=== PATIENT | female | born 1970 | race Caucasian/White ===

== ENCOUNTER 2023-01-15 06:46 | Inpatient (IN) | payer OTHER, MEDICAID ==
[~2023-01-15] VITALS: Ht 157.5 cm; Wt 73.0 kg
[2023-01-15 07:00] VITALS: BP_SYST 140
[2023-01-15] MEDS ORDERED: MORPHINE 4 MG INJ. 4 MG/ML VIAL IVP ONE ×2 (07:00→09:15)
[2023-01-15] MEDS ORDERED: ONDANSETRON HCL 4 MG/2 ML VIAL IVP ONE ×2 (07:00→09:15)
--- NOTE | 2023-01-15 07:00 | NUR ---
BROUGHT IN BY [facility], PLACED IN BED #5 AND TRIAGED. REPORT GIVEN TO NURSE
[2023-01-15] MEDS ORDERED: NACL 0.9% 1,000 ML IV ONE ×2 (07:15→11:00)
--- NOTE | 2023-01-15 07:21 | NUR ---
RECEIVED PT FROM VIDA HAMMOND. PT MIGUEL SORTOS FOR C/O ABOMINAL PAIN 07/03, ABDOMEN DISTENDED. PT IS AAOX4. ON R/A . C/O NAUSEA. SKIN INTACT. NO EDEMA. DISTAL PULSES NORMAL, SKIN PALE, WARM. SIDERAILS UP X2
--- NOTE | 2023-01-15 07:23 | NUR ---
DR. FIRAS AT BEDSIDE TO ASSESS PT.
[2023-01-15 07:26] LABS: BASOPHILS # (AUTO) 0.1 K/uL (0.0-0.2); BASOPHILS % (AUTO) 0.8 % (0.0-2.0); EOSINOPHILS # (AUTO) 0.2 K/uL (0.0-0.4); EOSINOPHILS % (AUTO) 2.4 % (0.0-4.0); HEMATOCRIT 33.7 % (36-48); HEMOGLOBIN 11.1 g/dL (12.0-16.0); LYMPHOCYTES # (AUTO) 0.9 K/uL (1.0-5.5); LYMPHOCYTES % (AUTO) 13.4 % (20.5-51.5); MEAN CORPUSCULAR HEMOGLOBIN 30 pg (27-31); MEAN CORPUSCULAR HGB CONC 33 % (32-36); MEAN CORPUSCULAR VOLUME 91 fL (79.0-98.0); MONOCYTES # (AUTO) 0.4 K/uL (0.0-1.0); MONOCYTES % (AUTO) 5.6 % (1.7-9.3); NEUTROPHILS # (AUTO) 5.5 K/uL (1.8-7.7); NEUTROPHILS % (AUTO) 77.8 % (40.0-70.0); PLATELET COUNT (AUTO) 348 K/uL (130-430); RED BLOOD CELL COUNT(AUTO) 3.72 MIL/uL (4.2-6.2); RED CELL DISTRIBUTION WIDTH 16.2 % (9.0-15.0); WHITE BLOOD COUNT (AUTO) 7.1 K/uL (4.8-10.8)
--- NOTE | 2023-01-15 07:30 | NUR ---
MORPHINE 4MG IVP AND ZOFRAN IVP GIVEN. NS 1000ML BOLUS INITIATED. PT STRAIGHT CATH BUT UNABLE TO OBTAIN URINE. PT BLADDER SCANNED AND FOUND TO HAVE 366ML OF URINE RETAINED.
[2023-01-15 07:38] LABS: CALCIUM 9.4 mg/dL (8.4-11.0); CREATININE 1.16 mg/dL (0.55-1.30)
[2023-01-15 07:43] LABS: ALBUMIN 3.3 g/dL (3.4-4.8); TOTAL BILIRUBIN 0.3 mg/dL (0.0-1.0)
[2023-01-15] MEDS ORDERED: ASPI-1393 PO (08:54)
[2023-01-15] MEDS ORDERED: TRAM50TA2 PO (08:54)
[2023-01-15] MEDS ORDERED: DOCU-144 PO (08:54)
[2023-01-15] MEDS ORDERED: DIPH25CA83 PO (08:54)
[2023-01-15] MEDS ORDERED: MULT-1089 PO (08:54)
[2023-01-15] MEDS ORDERED: LIP20 PO (08:54)
[2023-01-15] MEDS ORDERED: EFF37 PO (08:54)
[2023-01-15] MEDS ORDERED: MOM PO (08:54)
[2023-01-15] MEDS ORDERED: VITD400 PO (08:54)
[2023-01-15] MEDS ORDERED: LEVO125C2 PO (08:54)
[2023-01-15] MEDS ORDERED: ANT30 PO (08:54)
[2023-01-15] MEDS ORDERED: ONDA-8 TL (08:54)
[2023-01-15] MEDS ORDERED: PRO40 PO (08:54)
[2023-01-15] MEDS ORDERED: BUSP5TAB3 PO (08:54)
[2023-01-15] MEDS ORDERED: METO25TA6 PO (08:54)
[2023-01-15] MEDS ORDERED: TAMS-11 PO (08:54)
[2023-01-15] MEDS ORDERED: ACET325T53 PO (08:54)
[2023-01-15] MEDS ORDERED: CLON0.1T PO (08:54)
--- NOTE | 2023-01-15 08:55 | NUR ---
Medication reconciliation completed with information provided by PTS FAMILY. Any prior medication reconciliation on file was reviewed and corrected.
--- NOTE | 2023-01-15 10:20 | NUR ---
DR. FRIAS AT BESIDE TO DISCUSS POC.
--- NOTE | 2023-01-15 10:49 | NUR ---
NOTIFIED ED ADMITTING, МАРИЯ, REGARDING DR. FRIAS'S REQEUST FOR ADMISSION/TRANSFER. PER ED AMDITITNG, WE DO NOT NEED TO CALL FOR AUTH FOR ADMISSION. PER FACESHEET: [employer] POS- CHOICE POS II
[2023-01-15] MEDS ORDERED: D5/0.45 NS 1,000 ML IV ONE (11:00)
[2023-01-15] MEDS ORDERED: metroNIDAZOLE 500 mg/NS 100 ML IV ONE (11:00)
--- NOTE | 2023-01-15 11:00 | NUR ---
AAdmit bed requested Patient will be admitted to care of . Admitted to MEDICAL SURGICAL unit. Diagnosis SEVERE STOOL IMPACTION Inpatient (Yes or No) YES Observation (Yes or No) NO Orientation concerns or request close to nursing station (Yes or No) NO Covid Status PENDING On vent or bipap NONE Isolation requirements PENDING Needs a sitter NO From Home (Yes or if No enter name of facility) YES Requires Dialysis (Yes or No) NO Med Rec Completed (Yes of No) YES
--- NOTE | 2023-01-15 11:14 | NUR ---
COVID AND MRSA SWABBBED AND GIVEN TO PHOTOGRAPHIC LABORATORY SUPERVISOR
[2023-01-15 11:22] LABS: BILIRUBIN,URINE NEGATIVE (NEGATIVE); BLOOD, URINE NEGATIVE (NEGATIVE); COLOR,URINE YELLOW (YELLOW); GLUCOSE,URINE NEGATIVE (NEGATIVE); KETONES,URINE NEGATIVE (NEGATIVE); LEUKOCYTE ESTERASE ,URINE NEGATIVE (NEGATIVE); NITRITE, URINE NEGATIVE (NEGATIVE); PROTEIN URINE NEGATIVE (NEGATIVE); UROBILINOGEN,URINE 0.2 (0.2-1.0)
[2023-01-15 11:23] LABS: CLARITY/URINE CLEAR (CLEAR)
--- NOTE | 2023-01-15 11:57 | NUR ---
FLAGYL IVPB AND D5 1/2 NS AT 100ML/HOUR INITIATED.
[2023-01-15] MEDS ORDERED: cloNIDine HCL 0.1 MG TABLET PO PRN (13:15)
[2023-01-15] MEDS ORDERED: DIPHENHYDRAMINE HCL 25 MG CAPSULE PO PRN (13:15)
--- NOTE | 2023-01-15 13:28 | NUR ---
DR. PALM AT BEDSIDE TO ASSESS PT. RECEIVED ORDER FOR WALLACE CATH PLACEMENT.
--- NOTE | 2023-01-15 14:30 | NUR ---
# 16 FR Ackerman catheter with use of sterile technique. Immediate return of 600 cc CLEAR YELLOW urine noted. Bedside drainage bag placed below level of bladder. c Pt tolerated procedure WELL.
--- NOTE | 2023-01-15 15:52 | NUR ---
Patient will be admitted to care of VIDA GONZALEZ. Admitted to MEDICAL SURGICAL unit. Will go to room 101A. Belongings list completed. Complete and up to date summary report printed. SBAR report to be given at bedside with opportunity for questions.
[2023-01-15 16:01] VITALS: BP_SYST 163
--- NOTE | 2023-01-15 16:05 | NUR ---
patient was brought from ER yonny rn gave report bedside. patient is a/o x3-4 . was bedside and gave me meds form home that patient must take. we do not carry that particular medication. meds given to pharmacist. Per ER nurse patient was decomacted of 1.5lbs of stool. straight cath 2liters and dhaliwal was inserted. patient running fluids at 100ml/hr. admission questions answered by patient. patient cleaned due to vomit on gown. patient states is bed bound due to seizure 2 years ago that left her bed bound. patient was in snf x2 years and then d/c one week ago back home to . will continue to monitor patient.
[2023-01-15 16:37] VITALS: BP_SYST 153
[2023-01-15] MEDS: ACETAMINOPHEN 325 MG TABLET PO PRN ×2 (18:23→23:00)
--- NOTE | 2023-01-15 20:00 | NUR ---
Opening note- pt awake, alert and oriented x 2 and forgetful. No c/o abdominal pain. V/s stable afebrile. F/C patent.
[2023-01-15 20:24] VITALS: BP_SYST 100
[2023-01-15] MEDS: METOPROLOL TARTRATE 25 MG TABLET PO SCH (20:49)
[2023-01-15] MEDS: ATORVASTATIN 20 MG TABLET PO SCH (20:49)
[2023-01-15] MEDS: DOCUSATE SODIUM 100 MG CAPSULE PO SCH (20:51)
[2023-01-15] MEDS: Effexor 37.5 MG TAB PO SCH (20:55)
[2023-01-16 00:43] VITALS: BP_SYST 95
--- NOTE | 2023-01-16 01:43 | NUR ---
Consultation Paged Reason for Consultation: severe stool impaction Was consult called: Y Person who was notified: Kylah Consulting Physician: Dr. Stover (Dr. Mcgee is neon light installer) Ordering Physician: Dr. Hedrick
[2023-01-16] MEDS: LEVOTHYROXINE SODIUM SL SCH (06:06)
--- NOTE | 2023-01-16 06:15 | NUR ---
Closing note- pt remains stable. Pt forgetful. Had 1 small amount formed stool. skin dry and intact. H/L on Rt forearm # 22g. F/c with yellow clear urine.
[2023-01-16] MEDS ORDERED: LEVOTHYROXINE SODIUM 0.125 MG TABLET PO SCH (07:00)
--- NOTE | 2023-01-16 07:55 | NUR ---
OPENING NOTES ASLEEP, AROUSES EASILY. ORIENTED. NO SHORTNESS OF BREATH ON ROOM AIR. COMPLAINED OF HEADACHE, SAID THAT TYLENOL HELPS WITH PAIN. IV INTACT. WALLACE CATHETER IN PLACE, YELLOW URINE DRAINING. SAFETY CHECKS DONE. CALL LIGHT WITHIN REACH. WILL MEDICATE.
[2023-01-16 08:00] VITALS: BP_SYST 102
[2023-01-16] MEDS: MILK OF MAGNESIA 30 ML UDC PO SCH (08:45)
[2023-01-16] MEDS: ASPIRIN 81 MG TABLET(ECOTRIN) PO SCH (08:46)
[2023-01-16] MEDS: ACETAMINOPHEN 325 MG TABLET PO PRN (08:46)
[2023-01-16] MEDS: TAMSULOSIN HCL 0.4 MG CAP PO SCH (08:46)
[2023-01-16] MEDS: MULTIVITAMINS TAB 1 TABLET PO SCH (08:47)
[2023-01-16] MEDS: DOCUSATE SODIUM 100 MG CAPSULE PO SCH ×2 (08:47→21:56)
[2023-01-16] MEDS: busPIRone HCL 5 MG TABLET PO SCH (08:47)
[2023-01-16] MEDS: Effexor 37.5 MG TAB PO SCH ×2 (08:48→21:55)
[2023-01-16] MEDS: CHOLECALCIFEROL (VITAMIN D3) 5,000 UNIT TABLET PO SCH (08:48)
[2023-01-16] MEDS: METOPROLOL TARTRATE 25 MG TABLET PO SCH ×2 (08:49→21:00)
[2023-01-16] MEDS ORDERED: LEVOTHYROXINE SODIUM PO SCH (09:00)
--- NOTE | 2023-01-16 09:00 | NUR ---
MED PASS ORAL MEDS GIVEN. PATIENT AND HER EDUCATED ON USE OF MILK OF MAGNESIA AND COLACE. BOTH VERBALIZED UNDERSTANDING.
[2023-01-16] MEDS ORDERED: MINERAL OIL 133 ML ENEMA RC ONE (11:00)
[2023-01-16] MEDS ORDERED: MINERAL OIL 30 ML UDC PO ONE (11:00)
[2023-01-16] MEDS ORDERED: POLYETHYLENE GLYCOL 3350, 17 GM/ POWD.PACK PO ONE (11:00)
--- NOTE | 2023-01-16 11:14 | NUR ---
ROUNDS PATIENT TOOK ORAL MEDS. PREFERRED TO DO THE ENEMA LATER BECAUSE SHE WANTS TO REST.
[2023-01-16 11:23] VITALS: BP_SYST 90
--- NOTE | 2023-01-16 11:40 | NUR ---
ROUNDS GRAPHIC ART TECHNICIAN REPORTS LOW BLOOD PRESSURE. PATIENT DENIES ANY DIZZINESS. NO SIGN OF BLEEDING. LEGS ELEVATED. WILL RE-CHECK.
[2023-01-16 12:27] VITALS: BP_SYST 98
--- NOTE | 2023-01-16 12:29 | NUR ---
BLOOD PRESSURE RECHECKED 98/62mmHg.
--- NOTE | 2023-01-16 14:26 | NUR ---
ROUNDS ONLY A SMEAR OF STOOL EVEN AFTER THE OIL ENEMA. NO URGE TO HAVE A BOWEL MOVEMENT PER PATIENT. SEEN BY DR. PALM. SAFETY CHECKS DONE. CALL LIGHT WITHIN REACH.
[2023-01-16 15:24] VITALS: BP_SYST 100
--- NOTE | 2023-01-16 16:00 | NUR ---
ROUNDS RESTING. NO SIGN OF DISTRESS. SAFETY CHECKS DONE. CALL LIGHT WITHIN REACH.
--- NOTE | 2023-01-16 18:36 | NUR ---
CLOSING NOTES RESTING. NO SHORTNESS OF BREATH ON ROOM AIR. DENIES ANY PAIN. NO BOWEL MOVEMENT. ALL NEEDS MET THROUGHOUT SHIFT. SAFETY CHECKS DONE. CALL LIGHT WITHIN REACH.
--- NOTE | 2023-01-16 19:00 | NUR ---
RECEIVED PT IN BED.AOX2.ON RA.NOT IN RESPIRATORY DISTRESS NOTED.BED ION LOWEST POSITION.BEDSIDE TABLE AND CALL LIGHT ARE WITHIN REACH.BED IN LOWEST POSITION.ALL NEEDS ARE MET AT THIS TIME.
[2023-01-16 20:00] VITALS: BP_SYST 101
--- NOTE | 2023-01-16 21:00 | NUR ---
KEPT PT CLEAN AND DRY.ALL NEEDS ARE MET AT THIS TIME.
[2023-01-16] MEDS: POLYETHYLENE GLYCOL 3350, 17 GM/ POWD.PACK PO SCH (21:55)
[2023-01-16] MEDS: ATORVASTATIN 20 MG TABLET PO SCH (21:56)
[2023-01-17 01:12] VITALS: BP_SYST 123
--- NOTE | 2023-01-17 01:37 | NUR ---
PT IS ASLEEP.PT HAS EVEN AND UNLABORED BREATHING NOTED.
[2023-01-17] MEDS: LEVOTHYROXINE SODIUM SL SCH (06:15)
[2023-01-17 07:02] LABS: BASOPHILS % (AUTO) 0.7 % (0.0-2.0); EOSINOPHILS # (AUTO) 0.4 K/uL (0.0-0.4); EOSINOPHILS % (AUTO) 9.4 % (0.0-4.0); HEMATOCRIT 29.7 % (36-48); HEMOGLOBIN 9.9 g/dL (12.0-16.0); LYMPHOCYTES # (AUTO) 0.7 K/uL (1.0-5.5); LYMPHOCYTES % (AUTO) 16.1 % (20.5-51.5); MEAN CORPUSCULAR HEMOGLOBIN 30 pg (27-31); MEAN CORPUSCULAR HGB CONC 34 % (32-36); MEAN CORPUSCULAR VOLUME 91 fL (79.0-98.0); MONOCYTES # (AUTO) 0.3 K/uL (0.0-1.0); MONOCYTES % (AUTO) 7.3 % (1.7-9.3); NEUTROPHILS # (AUTO) 2.9 K/uL (1.8-7.7); NEUTROPHILS % (AUTO) 66.5 % (40.0-70.0); PLATELET COUNT (AUTO) 275 K/uL (130-430); RED BLOOD CELL COUNT(AUTO) 3.28 MIL/uL (4.2-6.2); RED CELL DISTRIBUTION WIDTH 15.8 % (9.0-15.0); WHITE BLOOD COUNT (AUTO) 4.4 K/uL (4.8-10.8)
[2023-01-17 07:29] LABS: CALCIUM 8.4 mg/dL (8.4-11.0); CREATININE 1.1 mg/dL (0.55-1.30)
[2023-01-17 08:00] VITALS: BP_SYST 146
--- NOTE | 2023-01-17 08:00 | NUR ---
Initial Notes Patient is Aox3. forgetful. No ss of distress noted. Breathing is even and nonlabored, on room air. Vital signs obtained, as documented. IV patent. Ackerman catheter draining yellow urine. draining by gravity. Bed is locked, alarm on, and at lowest position. call light within reach.
--- NOTE | 2023-01-17 09:01 | NUR ---
notes Dr. Mcgee came to see patient at bedside. New orders received.
[2023-01-17] MEDS: MILK OF MAGNESIA 30 ML UDC PO SCH (09:03)
[2023-01-17] MEDS: MINERAL OIL 30 ML UDC PO SCH (09:04)
[2023-01-17] MEDS: POLYETHYLENE GLYCOL 3350, 17 GM/ POWD.PACK PO SCH ×2 (09:04→20:24)
[2023-01-17] MEDS: Effexor 37.5 MG TAB PO SCH ×2 (09:04→21:32)
[2023-01-17] MEDS: ASPIRIN 81 MG TABLET(ECOTRIN) PO SCH (09:04)
[2023-01-17] MEDS: DOCUSATE SODIUM 100 MG CAPSULE PO SCH ×2 (09:04→20:23)
[2023-01-17] MEDS: CHOLECALCIFEROL (VITAMIN D3) 5,000 UNIT TABLET PO SCH (09:05)
[2023-01-17] MEDS: METOPROLOL TARTRATE 25 MG TABLET PO SCH ×2 (09:05→20:23)
[2023-01-17] MEDS: TAMSULOSIN HCL 0.4 MG CAP PO SCH (09:05)
[2023-01-17] MEDS: busPIRone HCL 5 MG TABLET PO SCH (09:05)
[2023-01-17] MEDS: MULTIVITAMINS TAB 1 TABLET PO SCH (09:06)
--- NOTE | 2023-01-17 11:15 | NUR ---
Noted Administered water tap enema. patient tolerated well. Addendum: 01/17/23 at 1714 by Shweta Thomas LVN PATIENT TOLERATED TAP WATER ENEMA WELL. HAS HAD A FEW BOWEL MOVEMENTS, SOFT/ LIQUID STOOL. ABDOMEN IS SOFT AND DISTENDED. PATIENT STATES FEEL A BETTER AFTER ENEMA.
[2023-01-17 12:00] VITALS: BP_SYST 139
--- NOTE | 2023-01-17 12:30 | NUR ---
NOTES PATIENT IS HAVING LUNCH. TOLERATED CLEAR LIQUID WELL. DENIES PAIN AND NAUSEA. NO SS OF DISTRESS NOTED. WALLACE CATH DRAINING BY GRAVITY. ALL SAFETY PRECAUTIONS IN PLACE AND CALL LIGHT WITHIN REACH.
[2023-01-17 16:38] VITALS: BP_SYST 139
--- NOTE | 2023-01-17 17:16 | NUR ---
NOTES PATIENT IS RESTING, EYES CLOSED. APPEARS TO BE ASLEEP. STABLE. NO FACIAL GRIMACE NOTED. SAFETY PRECAUTIONS IN PLACE AND CALL LIGHT WITHIN REACH.
--- NOTE | 2023-01-17 18:49 | NUR ---
CLOSING NOTES PATIENT FINISHED DINNER AND IS NOW RESTING. NO SS OF DISTRESS NOTED. BREATHING IS EVEN AND NONLABORED, ON ROOM AIR. PATIENT DENIES PAIN. NO SOB NOTED. IV PATENT. WALLACE CATHETER DRAINING YELLOW URINE BY GRAVITY. PATIENT IS STABLE. ALL NEEDS MET. BED IS LOCKED, ALARM ON, AND AT LOWEST POSITION. CALL LIGHT WITHIN REACH.
[2023-01-17] MEDS: traMADol HCL HCL 50 MG TABLET (ULTRAM) PO PRN (19:49)
[2023-01-17 20:00] VITALS: BP_SYST 149
--- NOTE | 2023-01-17 20:00 | NUR ---
RECEIVED PT IN BED,AOX2-3, EVEN AND UNLABORED BREATHING, DENIED ANY SOB,CP, STATED SHE HAS ABD PAIN 09/02, F/C DRAINING UNDER GRAVITY , CLEAR URINE, RA, BR, ON CLR LIQ, WILL CONTINUE WITH POC
[2023-01-17] MEDS: ATORVASTATIN 20 MG TABLET PO SCH (20:24)
[2023-01-17] MEDS: MAG-AL HYDROX/SIMETH 30 ML UDC PO PRN (21:36)
[2023-01-18] VITALS: BP_SYST 132
[2023-01-18] MEDS: traMADol HCL HCL 50 MG TABLET (ULTRAM) PO PRN ×2 (04:49→22:13)
[2023-01-18] MEDS: LEVOTHYROXINE SODIUM SL SCH (06:15)
--- NOTE | 2023-01-18 06:22 | NUR ---
PT AOX2-3, EVEN AND UNLABORED BREATHING, DENIED SOB, CP OR ANY PAIN AT THIS TIME, VOIDING AND HAD BM X3 DURING SHIFT, ABD PAIN CONTROLLED WITH TRAMADOL AND WAS EFFECTIVE PER PT, F/C DRAINING YELLOW CLEAR URINE UNDER GRAVITY, BEDREST, TOLERATING CLEAR DIET AND MEDS, SAFETY PREC MAINTAINED, LOW BED, CALL LIGHT WITHIN REACH, WILL BE ENDORSED TO AM RN
--- NOTE | 2023-01-18 08:00 | NUR ---
Note Report received from night RN. Pt sitting up in bed eating her breakfast. No needs noted at this time. Pt stable. Dr Reynolds (GI) at bedside assessing pt and answering questions/concerns at this time. Ackerman catheter intact and draining well. Call light within reach.
[2023-01-18 08:01] VITALS: BP_SYST 132
[2023-01-18] MEDS: MINERAL OIL 30 ML UDC PO SCH (08:52)
[2023-01-18] MEDS: MILK OF MAGNESIA 30 ML UDC PO SCH (08:52)
[2023-01-18] MEDS: POLYETHYLENE GLYCOL 3350, 17 GM/ POWD.PACK PO SCH ×2 (08:52→20:03)
[2023-01-18] MEDS: busPIRone HCL 5 MG TABLET PO SCH (08:56)
[2023-01-18] MEDS: CHOLECALCIFEROL (VITAMIN D3) 5,000 UNIT TABLET PO SCH (08:56)
[2023-01-18] MEDS: TAMSULOSIN HCL 0.4 MG CAP PO SCH (08:56)
[2023-01-18] MEDS: MULTIVITAMINS TAB 1 TABLET PO SCH (08:56)
[2023-01-18] MEDS: ASPIRIN 81 MG TABLET(ECOTRIN) PO SCH (08:56)
[2023-01-18] MEDS: DOCUSATE SODIUM 100 MG CAPSULE PO SCH ×2 (08:56→20:02)
[2023-01-18] MEDS: Effexor 37.5 MG TAB PO SCH ×2 (08:57→22:13)
[2023-01-18] MEDS: METOPROLOL TARTRATE 25 MG TABLET PO SCH ×2 (08:57→20:03)
[2023-01-18] MEDS: D5/0.45 NS 1,000 ML IV SCH ×2 (11:10→17:28)
[2023-01-18 11:24] VITALS: BP_SYST 149
--- NOTE | 2023-01-18 12:15 | NUR ---
Note Pt resting in bed - HIDA scan ordered and to be done at this time. Pt will go down to dept via bed. Dr Lvein was at bedside 1020am - assessment done and questions/concerns were answered at this time.
[2023-01-18 15:20] VITALS: BP_SYST 142
--- NOTE | 2023-01-18 17:40 | NUR ---
Note - HIDA Pt went down for HIDA scan at 1650 via [employer], pt returned to room at 1720. Pt refused HIDA scan. Pt returned to room back to bed. Pt refused all food/nutrition at this time. Pt wants to just sleep/rest at this time with lights in room off (pt wants to rest in the dark). Call light within reach.
--- NOTE | 2023-01-18 18:10 | NUR ---
END OF SHIFT. Pt asleep in bed, no needs noted. Ackerman catheter intact and draining. VSS. IV in right forearm intact and patent infusing IVF's. Pt's bed in low position and bed alarm on. side rails raised. Call light within reach.
[2023-01-18 19:41] VITALS: BP_SYST 137
--- NOTE | 2023-01-18 20:00 | NUR ---
Opening note- pt awake and oriented x2-3. No s/sx of distress. D51/2NS at 75 ml/hr. Rt arm iv- infiltrated. Changed to lt arm # 22.
[2023-01-18] MEDS: ATORVASTATIN 20 MG TABLET PO SCH (20:02)
[2023-01-18] MEDS: ONDANSETRON HCL 4 MG/2 ML VIAL IVP PRN (22:13)
[2023-01-19 00:08] VITALS: BP_SYST 139
--- NOTE | 2023-01-19 06:06 | NUR ---
Closing note- pt c/o nausea and abdominal pain last night. Given Zofran 4 mg ivp and Tramadol 1 tab po. Pt had 1 x bm-small and hard. Given Miralax 1 pack last night. Pt able to turn side to side. IVF D51/2NS at 75 ml/hr.
[2023-01-19] MEDS: LEVOTHYROXINE SODIUM SL SCH (06:17)
[2023-01-19 07:28] LABS: BASOPHILS % (AUTO) 0.8 % (0.0-2.0); EOSINOPHILS # (AUTO) 0.3 K/uL (0.0-0.4); EOSINOPHILS % (AUTO) 6.6 % (0.0-4.0); HEMATOCRIT 29.4 % (36-48); HEMOGLOBIN 9.8 g/dL (12.0-16.0); LYMPHOCYTES # (AUTO) 0.9 K/uL (1.0-5.5); LYMPHOCYTES % (AUTO) 18.3 % (20.5-51.5); MEAN CORPUSCULAR HEMOGLOBIN 30 pg (27-31); MEAN CORPUSCULAR HGB CONC 33 % (32-36); MEAN CORPUSCULAR VOLUME 91 fL (79.0-98.0); MONOCYTES # (AUTO) 0.5 K/uL (0.0-1.0); MONOCYTES % (AUTO) 10.1 % (1.7-9.3); NEUTROPHILS # (AUTO) 3.2 K/uL (1.8-7.7); NEUTROPHILS % (AUTO) 64.2 % (40.0-70.0); PLATELET COUNT (AUTO) 278 K/uL (130-430); RED BLOOD CELL COUNT(AUTO) 3.25 MIL/uL (4.2-6.2); RED CELL DISTRIBUTION WIDTH 15.5 % (9.0-15.0)
[2023-01-19 07:30] VITALS: BP_SYST 120
--- NOTE | 2023-01-19 07:30 | NUR ---
OPENING NOTE Patient resting in bed. A/O x 3 with some bouts of confusion, Kuwaiti speaking. Patient Breathing even and unlabored on RA saturations at 100%. NO pain, no distress, no SOB. Patient stated no N/V during the night and currently feels ok to eat breakfast. GI MD is at bedside discussing plans, MD will place more orders for laxatives. Patient on Clear liquid Diet and seems to be tolerating it thus far. Patient has IV to LFA 22G, patent on infusion pump. Bed is locked in lowest position. Call light within reach, all needs met, will continue to monitor.
[2023-01-19] MEDS ORDERED: GOLYTELY / COLYTE SOLUTION 4 LITERS PO ONE (08:00)
[2023-01-19 08:08] LABS: ALBUMIN 2.4 g/dL (3.4-4.8); CALCIUM 8.4 mg/dL (8.4-11.0); CREATININE 1.06 mg/dL (0.55-1.30); TOTAL BILIRUBIN 0.5 mg/dL (0.0-1.0)
[2023-01-19] MEDS: Effexor 37.5 MG TAB PO SCH ×2 (09:18→21:00)
[2023-01-19] MEDS: MINERAL OIL 30 ML UDC PO SCH (09:18)
[2023-01-19] MEDS: POLYETHYLENE GLYCOL 3350, 17 GM/ POWD.PACK PO SCH ×2 (09:18→21:42)
[2023-01-19] MEDS: MILK OF MAGNESIA 30 ML UDC PO SCH (09:18)
[2023-01-19] MEDS: TAMSULOSIN HCL 0.4 MG CAP PO SCH (09:19)
[2023-01-19] MEDS: MULTIVITAMINS TAB 1 TABLET PO SCH (09:19)
[2023-01-19] MEDS: CHOLECALCIFEROL (VITAMIN D3) 5,000 UNIT TABLET PO SCH (09:19)
[2023-01-19] MEDS: DOCUSATE SODIUM 100 MG CAPSULE PO SCH ×2 (09:19→21:40)
[2023-01-19] MEDS: METOPROLOL TARTRATE 25 MG TABLET PO SCH ×2 (09:19→21:43)
[2023-01-19] MEDS: busPIRone HCL 5 MG TABLET PO SCH (09:19)
[2023-01-19] MEDS: ASPIRIN 81 MG TABLET(ECOTRIN) PO SCH (09:19)
[2023-01-19 11:21] VITALS: BP_SYST 110
--- NOTE | 2023-01-19 12:30 | NUR ---
ROUNDS: Patient resting in bed. Patient Breathing even and unlabored on RA saturations at 100%. NO pain, no distress, no SOB. Bed is locked in lowest position. Call light within reach, all needs met, will continue to monitor.
[2023-01-19] MEDS: D5/0.45 NS 1,000 ML IV SCH (12:43)
[2023-01-19 15:35] VITALS: BP_SYST 105
--- NOTE | 2023-01-19 15:49 | NUR ---
MD LEAL Placed a call to MD Sloan regarding patients AST and ALT levels. MD Holly was consulting with patient and wanted me to communicate the labs with patient. Awaiting a call back from MD Sloan
--- NOTE | 2023-01-19 16:10 | NUR ---
ROUNDS: Patient resting in bed. Patient Breathing even and unlabored on RA. NO pain, no distress, no SOB. Bed is locked in lowest position. Call light within reach, all needs met, will continue to monitor.
--- NOTE | 2023-01-19 16:28 | NUR ---
CONSULTATION PAGED/CALLED Reason for Consultation: [] GALLSTONES Person Who was Notified: [] DR Hao MORGAN Consulting Physician: [] DR Hao MORGAN Lining Stamper Specialty: [] GEB SURGEON Ordering Physician: [] DR MONAE
--- NOTE | 2023-01-19 16:40 | NUR ---
MD NAIR Spoke with MD Nair regarding patients status. He stated he will see her in the morning for follow up.
[2023-01-19] MEDS: PIPERACILLIN/TAZO 3.375/DEX-IS 50 ML IV SCH (17:30)
--- NOTE | 2023-01-19 18:35 | NUR ---
CLOSING NOTE Patient resting in bed. Patient Breathing even and unlabored on RA saturations at 100%. NO pain, no distress, no SOB. Patient on Clear liquid Diet and will have MRI MRCP tomorrow, Checklist in chart. Patient has IV to LFA 22G, patent on infusion pump. Bed is locked in lowest position. Call light within reach, all needs met, will endorse to nightshift nurse.
[2023-01-19 20:00] VITALS: BP_SYST 114
[2023-01-19] MEDS: ATORVASTATIN 20 MG TABLET PO SCH (21:44)
[2023-01-20 00:29] VITALS: BP_SYST 117
[2023-01-20] MEDS: LEVOTHYROXINE SODIUM SL SCH (06:29)
[2023-01-20] MEDS: PIPERACILLIN/TAZO 3.375/DEX-IS 50 ML IV SCH ×4 (06:31→17:21)
[2023-01-20 06:53] LABS: BASOPHILS % (AUTO) 0.7 % (0.0-2.0); EOSINOPHILS # (AUTO) 0.3 K/uL (0.0-0.4); EOSINOPHILS % (AUTO) 8.3 % (0.0-4.0); HEMATOCRIT 28.6 % (36-48); HEMOGLOBIN 9.6 g/dL (12.0-16.0); LYMPHOCYTES # (AUTO) 0.8 K/uL (1.0-5.5); LYMPHOCYTES % (AUTO) 21.5 % (20.5-51.5); MEAN CORPUSCULAR HEMOGLOBIN 30 pg (27-31); MEAN CORPUSCULAR HGB CONC 34 % (32-36); MEAN CORPUSCULAR VOLUME 91 fL (79.0-98.0); MONOCYTES # (AUTO) 0.5 K/uL (0.0-1.0); MONOCYTES % (AUTO) 11.9 % (1.7-9.3); NEUTROPHILS # (AUTO) 2.2 K/uL (1.8-7.7); NEUTROPHILS % (AUTO) 57.6 % (40.0-70.0); PLATELET COUNT (AUTO) 278 K/uL (130-430); RED BLOOD CELL COUNT(AUTO) 3.16 MIL/uL (4.2-6.2); RED CELL DISTRIBUTION WIDTH 15.8 % (9.0-15.0); WHITE BLOOD COUNT (AUTO) 3.9 K/uL (4.8-10.8)
[2023-01-20 07:28] LABS: INR 1.1 (0.8-1.2); PROTHROMBIN TIME 11.1 SECS (9.5-12.5)
[2023-01-20 07:31] LABS: ALBUMIN 2.3 g/dL (3.4-4.8); CALCIUM 8.3 mg/dL (8.4-11.0); CREATININE 1.01 mg/dL (0.55-1.30); TOTAL BILIRUBIN 0.4 mg/dL (0.0-1.0)
--- NOTE | 2023-01-20 07:40 | NUR ---
OPENING NOTE Received report from night monitor RN. Upon entering room, patient is laying in bed calmly at this time. She is alert and oriented x4. She denies pain or discomfort at this time. IV site intact. Call light within reach. Safety precautions observed.
--- NOTE | 2023-01-20 07:50 | NUR ---
Patient is alert, oriented, no acute respiratory distress, she continues to have abdominal distention, no request for pain medication, no nausea or vomiting. IV fluid continues with D5.45NS at 75 ml/hr, vitals are stable. Patient was checked frequently.
--- NOTE | 2023-01-20 09:30 | NUR ---
PATIENT RETURNED FROM MRI According to compounding technician. Only 2 images were taken. In MRI, patient asked for the procedure to stop. The tech then ceased the procedure and brought patient brought back to room. Upon arriving back to room, patient reported nausea. IV zofran given at this time per complaint.
[2023-01-20] MEDS: ONDANSETRON HCL 4 MG/2 ML VIAL IVP PRN (09:54)
--- NOTE | 2023-01-20 10:15 | NUR ---
GI ROUNDS Dr. Gonzalez at bedside. He offered to manually disimpact patient. Patient refused at this time.
--- NOTE | 2023-01-20 10:53 | NUR ---
PATIENT REFUSING MORNING MEDS Patient offered morning medications multiple times after arriving from procedure. Patient continues to refuse despite education given. Patient states, "not right now."
[2023-01-20 11:21] VITALS: BP_SYST 140
[2023-01-20] MEDS: DOCUSATE SODIUM 100 MG CAPSULE PO SCH ×2 (13:10→20:59)
[2023-01-20] MEDS: CHOLECALCIFEROL (VITAMIN D3) 5,000 UNIT TABLET PO SCH (13:10)
[2023-01-20] MEDS: MULTIVITAMINS TAB 1 TABLET PO SCH (13:10)
[2023-01-20] MEDS: METOPROLOL TARTRATE 25 MG TABLET PO SCH ×2 (13:11→20:59)
[2023-01-20] MEDS: TAMSULOSIN HCL 0.4 MG CAP PO SCH (13:11)
[2023-01-20] MEDS: busPIRone HCL 5 MG TABLET PO SCH (13:12)
[2023-01-20] MEDS: MILK OF MAGNESIA 30 ML UDC PO SCH (13:12)
[2023-01-20] MEDS: ASPIRIN 81 MG TABLET(ECOTRIN) PO SCH (13:12)
[2023-01-20] MEDS: POLYETHYLENE GLYCOL 3350, 17 GM/ POWD.PACK PO SCH ×2 (13:13→20:58)
[2023-01-20] MEDS: MINERAL OIL 30 ML UDC PO SCH (13:13)
[2023-01-20] MEDS: Effexor 37.5 MG TAB PO SCH ×2 (13:17→21:03)
--- NOTE | 2023-01-20 14:08 | NUR ---
Dietitian Recommendations * When medically appropriate, advance to full liquid diet * Encourage good po intake GS, MPH, RD Please refer to RD Assessment for further details. Thanks! Addendum: 01/20/23 at [address] Amended: Links added.
[2023-01-20 15:37] VITALS: BP_SYST 106
--- NOTE | 2023-01-20 16:08 | NUR ---
PHYSICAL THERAPY CO-SIGN The Physical Therapy Progress Notes documented by Blood Splatter Analyst have been reviewed. Reviewed/Co-Signed by: Art Cao Documentation Done by:DEVON GARCIA Addendum: 01/20/23 at 1608 by Art Cao PT Amended: Links added.
[2023-01-20] MEDS: D5/0.45 NS 1,000 ML IV SCH ×2 (17:24)
[2023-01-20] MEDS: MAG-AL HYDROX/SIMETH 30 ML UDC PO PRN (20:58)
[2023-01-20] MEDS: ATORVASTATIN 20 MG TABLET PO SCH (20:59)
[2023-01-21 00:41] VITALS: BP_SYST 110
[2023-01-21] MEDS: PIPERACILLIN/TAZO 3.375/DEX-IS 50 ML IV SCH ×4 (00:41→19:56)
[2023-01-21 04:00] VITALS: BP_SYST 112
[2023-01-21] MEDS: D5/0.45 NS 1,000 ML IV SCH ×2 (05:03→15:09)
[2023-01-21] MEDS: LEVOTHYROXINE SODIUM SL SCH (06:18)
[2023-01-21] MEDS: METOPROLOL TARTRATE 25 MG TABLET PO SCH ×2 (09:00→21:43)
[2023-01-21] MEDS: DOCUSATE SODIUM 100 MG CAPSULE PO SCH ×2 (09:00→21:42)
[2023-01-21] MEDS: Effexor 37.5 MG TAB PO SCH ×2 (09:00→21:43)
[2023-01-21] MEDS: POLYETHYLENE GLYCOL 3350, 17 GM/ POWD.PACK PO SCH ×2 (09:00→21:44)
--- NOTE | 2023-01-21 10:55 | NUR ---
LATE ENTRY PT STABLE NOT IN ACUTE DISTRESS. NPO FOR MRI MRCP. PT TAKEN FOR MRI BY TECH IN STABLE CONDITION
--- NOTE | 2023-01-21 11:30 | NUR ---
LATE ENTRY CARE ENDORSED TO VIDA ASCENCIO
[2023-01-21 11:40] VITALS: BP_SYST 137
[2023-01-21] MEDS ORDERED: MINERAL OIL 30 ML UDC PO ONE (13:15)
[2023-01-21] MEDS: ASPIRIN 81 MG TABLET(ECOTRIN) PO SCH (14:50)
[2023-01-21] MEDS: MILK OF MAGNESIA 30 ML UDC PO SCH (14:50)
[2023-01-21] MEDS: MULTIVITAMINS TAB 1 TABLET PO SCH (14:51)
[2023-01-21] MEDS: TAMSULOSIN HCL 0.4 MG CAP PO SCH (14:51)
[2023-01-21] MEDS: CHOLECALCIFEROL (VITAMIN D3) 5,000 UNIT TABLET PO SCH (14:51)
[2023-01-21] MEDS: busPIRone HCL 5 MG TABLET PO SCH (14:51)
[2023-01-21 15:20] VITALS: BP_SYST 121
--- NOTE | 2023-01-21 15:34 | NUR ---
PHYSICAL THERAPY CO-SIGN The Physical Therapy Progress Notes documented by Cut And Cover Line Worker have been reviewed. Reviewed/Co-Signed by: Art Cao Documentation Done by:DEVON GARCIA Addendum: 01/21/23 at 1535 by Art Cao PT Amended: Links added.
[2023-01-21] MEDS ORDERED: *PPN PER PHARMACY XX PRN (18:15)
[2023-01-21 19:00] VITALS: BP_SYST 145
[2023-01-21] MEDS: MINERAL OIL 30 ML UDC PO SCH (19:57)
[2023-01-21 20:00] VITALS: BP_SYST 145
[2023-01-21] MEDS: ATORVASTATIN 20 MG TABLET PO SCH (21:43)
[2023-01-22] MEDS: MINERAL OIL 30 ML UDC PO SCH ×4 (00:05→18:04)
[2023-01-22] MEDS: PIPERACILLIN/TAZO 3.375/DEX-IS 50 ML IV SCH ×4 (00:05→18:04)
[2023-01-22 00:52] VITALS: BP_SYST 139
[2023-01-22] MEDS: LEVOTHYROXINE SODIUM SL SCH (05:43)
[2023-01-22 07:15] LABS: ALBUMIN 2.4 g/dL (3.4-4.8); CALCIUM 8.5 mg/dL (8.4-11.0); CREATININE 1.19 mg/dL (0.55-1.30); PHOSPHORUS 2.9 mg/dL (2.7-4.5); TOTAL BILIRUBIN 0.4 mg/dL (0.0-1.0)
[2023-01-22 08:00] VITALS: BP_SYST 130
[2023-01-22] MEDS: D5/0.45 NS 1,000 ML IV SCH ×2 (08:05→21:25)
--- NOTE | 2023-01-22 08:30 | NUR ---
PPN Recommendation Subjective Information 01/22/23: PPN per pharmacy received 01/21/[id number] saw pt for full assessment on 01/20. RD provided called pharmacy and they said they would read her note. RD reviewed current EMR: diet Hx, MD/RN notes, pertinent labs, meds, procedures, care trends, and care activity. Brief RD note d/t high workload/census. Estimated Energy Expenditure (kcals/day) 2895-5399 kcal (25-30 kcal/kg ABW d/t adult maintenance) Estimated Protein Required (g/day) 45-67g (0.8-1.2g/kg ABW d/t adult maintenance) Estimated Fluid Required (l/day) 1.4-1.6L (1mL/kcal maintenance) Dietitian Recommendations * Initiate PPN if medically appropriate: -- D20 AA 8.5% @ 80mL/hr (goal rate) + 20%ILE @ 10mL/hr via peripheral line Provides: 2160mL total volume, 1459 kcals, 82g AA; GIR 1.8 Meets: 100% lower est kcals, 122% higher est PRO, 100% lower est fluids High Risk F/U: 2-3 days GS, MPH, KAYLI Addendum: 01/22/23 at [address] NEW Subjective Pt had been severely impacted w/ no improvements, which is why the PPN was ordered. However, at LOS meeting today, it became clear that she had a very large BM and per EMR review she has had 4 BMs today. PPN is no longer needed for this pt. She could benefit from a high fiber diet, once diet is advanced. NEW Dietitian Recommendations: * Advance to regular, high fiber diet when medically appropriate * Encourage adequate fluid intake * Consider bowel regimen for when pt leaves home CHIARA, MPH, RD
[2023-01-22] MEDS: busPIRone HCL 5 MG TABLET PO SCH (09:12)
[2023-01-22] MEDS: CHOLECALCIFEROL (VITAMIN D3) 5,000 UNIT TABLET PO SCH (09:12)
[2023-01-22] MEDS: Effexor 37.5 MG TAB PO SCH ×2 (09:12→21:00)
[2023-01-22] MEDS: TAMSULOSIN HCL 0.4 MG CAP PO SCH (09:12)
[2023-01-22] MEDS: METOPROLOL TARTRATE 25 MG TABLET PO SCH ×2 (09:12→22:19)
[2023-01-22] MEDS: ASPIRIN 81 MG TABLET(ECOTRIN) PO SCH (09:12)
[2023-01-22] MEDS: DOCUSATE SODIUM 100 MG CAPSULE PO SCH ×2 (09:13→22:19)
[2023-01-22] MEDS: MILK OF MAGNESIA 30 ML UDC PO SCH (09:13)
[2023-01-22] MEDS: MULTIVITAMINS TAB 1 TABLET PO SCH (09:13)
[2023-01-22] MEDS: POLYETHYLENE GLYCOL 3350, 17 GM/ POWD.PACK PO SCH ×2 (09:18→22:19)
[2023-01-22 12:00] VITALS: BP_SYST 138
--- NOTE | 2023-01-22 13:00 | NUR ---
PATIENT REFUSED PT TREATMENT TODAY. MAX ENCOURAGEMENT GIVEN FOR PATIENT TO PARTICIPATE HOWEVER PATIENT STATES SHE FEELS TOO WEAK.
--- NOTE | 2023-01-22 14:13 | NUR ---
PT HAD 2 EXTRA EXTRA VERY LARGE BM'S. ABD SOFT BUT DISTENDED. NO C/O PAIN. FALL PRECAUTIONS IN PLACE, CALL YOUNG IN REACH. GAVE DR MORGAN OFFICE NUMBER PER MD REQUEST. MIDLINE NURSE NOTIFIED OF MIDLINE PLACEMENT ORDER.
--- NOTE | 2023-01-22 14:38 | NUR ---
CARE ENDORSED TO ONCOMING RN
--- NOTE | 2023-01-22 14:40 | NUR ---
OPENING NOTE; RECEIVED SBAR FROM PREVIOUS RN. PT RESTING IN BED. OBTAINED CONSENT FOR MIDLINE PLACEMENT. BED IS LOCKED AND AT LOW POSITION. IVF RUNNING ORDERED. IV SITE REMAIN INTACT AND PATENT. ENCOURAGED TO USE CALL LIGHT FOR ASSISTANCE. DENIES ANY PAIN OR DISCOMFORT. WILL CONT TO MONITOR.
[2023-01-22 15:29] VITALS: BP_SYST 130
--- NOTE | 2023-01-22 18:05 | NUR ---
PT REFUSED MINERAL OIL IINITALLY, BUT PT TOOK MINERAL OIL WITH APPLE JUICE
--- NOTE | 2023-01-22 19:00 | NUR ---
PICC LINE NURSE AT BEDSIDE
--- NOTE | 2023-01-22 19:29 | NUR ---
CLOSING NOTE; PT RESTING IN BED. BED IS LOCKED AND AT LOW POSITION. IVF RUNNING ORDERED. IV SITE REMAIN INTACT AND PATENT. ENCOURAGED TO USE CALL LIGHT FOR ASSISTANCE. DENIES ANY PAIN OR DISCOMFORT. WILL ENDORSE CARE TO ELECTRICAL LINESWORKER RN.
[2023-01-22 20:00] VITALS: BP_SYST 128
[2023-01-22] MEDS ORDERED: TPN PERIPHERAL 0.0001 ML, SODIUM ACETATE 40 MEQ, POTASSIUM CHLORIDE 20 MEQ, K PHOS 9 MM... IV SCH ×9 (21:00)
[2023-01-22] MEDS: ATORVASTATIN 20 MG TABLET PO SCH (22:17)
[2023-01-23] MEDS: MINERAL OIL 30 ML UDC PO SCH ×4 (05:52→17:54)
[2023-01-23] MEDS: PIPERACILLIN/TAZO 3.375/DEX-IS 50 ML IV SCH ×4 (05:52→18:28)
[2023-01-23] MEDS: LEVOTHYROXINE SODIUM SL SCH (05:54)
[2023-01-23 07:55] LABS: ALBUMIN 2.4 g/dL (3.4-4.8); CALCIUM 8.5 mg/dL (8.4-11.0); CREATININE 1.03 mg/dL (0.55-1.30); PHOSPHORUS 3.5 mg/dL (2.7-4.5); TOTAL BILIRUBIN 0.3 mg/dL (0.0-1.0)
[2023-01-23 08:00] VITALS: BP_SYST 131
--- NOTE | 2023-01-23 08:00 | NUR ---
"Start of shift. Pt resting in bed. No SOB/resp distress of pain/discomfort was noted. Pt's RAMY midline intact and infusing iVF's well. IV in left arm intact and oatent infusing |IVF's well. Bed in low position and bed alarm on. Side rails raised. Pt's dhaliwal catheter intact and draining well. Call light within reach. Pt will be NPO for surgery today."
--- NOTE | 2023-01-23 08:00 | NUR ---
SPOKE WITH DR MORGAN, NEW ORDERS RECEIVED
[2023-01-23] MEDS: ASPIRIN 81 MG TABLET(ECOTRIN) PO SCH (08:37)
[2023-01-23] MEDS: DOCUSATE SODIUM 100 MG CAPSULE PO SCH ×2 (08:37→21:00)
[2023-01-23] MEDS: busPIRone HCL 5 MG TABLET PO SCH (08:37)
[2023-01-23] MEDS: Effexor 37.5 MG TAB PO SCH ×2 (08:38→21:00)
[2023-01-23] MEDS: METOPROLOL TARTRATE 25 MG TABLET PO SCH ×2 (08:38→21:00)
[2023-01-23] MEDS: TAMSULOSIN HCL 0.4 MG CAP PO SCH (08:38)
[2023-01-23] MEDS: MILK OF MAGNESIA 30 ML UDC PO SCH (08:38)
[2023-01-23] MEDS: MULTIVITAMINS TAB 1 TABLET PO SCH (08:39)
[2023-01-23] MEDS: POLYETHYLENE GLYCOL 3350, 17 GM/ POWD.PACK PO SCH ×2 (08:39→21:00)
[2023-01-23] MEDS: CHOLECALCIFEROL (VITAMIN D3) 5,000 UNIT TABLET PO SCH (08:39)
[2023-01-23 09:05] LABS: BASOPHILS % (AUTO) 0.7 % (0.0-2.0); EOSINOPHILS # (AUTO) 0.3 K/uL (0.0-0.4); EOSINOPHILS % (AUTO) 5.2 % (0.0-4.0); HEMATOCRIT 30.7 % (36-48); HEMOGLOBIN 10.2 g/dL (12.0-16.0); LYMPHOCYTES # (AUTO) 0.8 K/uL (1.0-5.5); LYMPHOCYTES % (AUTO) 13.4 % (20.5-51.5); MEAN CORPUSCULAR HEMOGLOBIN 30 pg (27-31); MEAN CORPUSCULAR HGB CONC 33 % (32-36); MEAN CORPUSCULAR VOLUME 91 fL (79.0-98.0); MONOCYTES # (AUTO) 0.5 K/uL (0.0-1.0); MONOCYTES % (AUTO) 8.9 % (1.7-9.3); NEUTROPHILS # (AUTO) 4.4 K/uL (1.8-7.7); NEUTROPHILS % (AUTO) 71.8 % (40.0-70.0); PLATELET COUNT (AUTO) 300 K/uL (130-430); RED BLOOD CELL COUNT(AUTO) 3.39 MIL/uL (4.2-6.2); RED CELL DISTRIBUTION WIDTH 15.3 % (9.0-15.0); WHITE BLOOD COUNT (AUTO) 6.2 K/uL (4.8-10.8)
[2023-01-23 09:36] LABS: CALCIUM 8.3 mg/dL (8.4-11.0); CREATININE 1.09 mg/dL (0.55-1.30)
[2023-01-23 09:40] LABS: ALBUMIN 2.3 g/dL (3.4-4.8); TOTAL BILIRUBIN 0.3 mg/dL (0.0-1.0)
[2023-01-23] MEDS: D5/0.45 NS 1,000 ML IV SCH (10:45)
[2023-01-23 11:23] VITALS: BP_SYST 133
--- NOTE | 2023-01-23 14:00 | NUR ---
Note Pt off the floor via bed to OR for surgery with Dr Nair.
[2023-01-23] MEDS ORDERED: HYDROmorphone 1 MG/ML INJ. CARTRIDGE IVP PRN (15:00)
[2023-01-23] MEDS ORDERED: NALOXONE HCL 0.4 MG/ML AMP (NARCAN) IVP PRN (15:00)
[2023-01-23] MEDS ORDERED: ONDANSETRON HCL 4 MG/2 ML VIAL IVP PRN ×2 (15:00→18:00)
[2023-01-23] MEDS ORDERED: MEPERIDINE HCL/PF 25 MG/ML DISP.SYRIN IVP PRN (15:00)
[2023-01-23] MEDS ORDERED: KETOROLAC TROMETHAMINE 30 MG VIAL IVP PRN (15:00)
[2023-01-23] MEDS ORDERED: LR 1,000 ML IV SCH (15:15)
--- NOTE | 2023-01-23 15:16 | NUR ---
PATIENT WAS NOT SEEN FOR PT TREATMENT D/T PATIENT GOING TO SURGERY.
[2023-01-23] MEDS ORDERED: GLYCOPYRROLATE 0.2 MG/ML VIAL ONE (15:35)
[2023-01-23] MEDS ORDERED: LABETALOL 100 MG/ 20ML VIAL ONE (15:35)
[2023-01-23] MEDS ORDERED: CEFAZOLIN 1 GM IVPB PREMIX 50 ML IV ONE (15:35)
[2023-01-23] MEDS ORDERED: BUPIVACAINE /EPINEPHRINE/PF 0.5% 30 ML VIAL INJ ONE (15:35)
[2023-01-23] MEDS ORDERED: PROPOFOL 200MG/ 20ML VIAL (DIPRIVAN) IV ONE (15:35)
[2023-01-23] MEDS ORDERED: NEOSTIGMINE METHYLSULFATE 1 MG/ML, 10 ML VIAL ONE (15:35)
[2023-01-23] MEDS ORDERED: fentaNYL CITRATE/PF 100 MCG/2 ML AMP ONE (15:35)
[2023-01-23] MEDS ORDERED: SEVOFLURANE 15 MIN GAS INH ONE (15:35)
[2023-01-23] MEDS ORDERED: NS 1000 ML IV.SOLN IV ONE (15:35)
[2023-01-23] MEDS ORDERED: LR 1,000 ML IV.SOLN IV ONE (15:35)
[2023-01-23] MEDS ORDERED: DEXAMETHASONE SOD PHOSPHATE 4 MG/ML VIAL ONE (15:35)
[2023-01-23] MEDS ORDERED: KETOROLAC TROMETHAMINE 30 MG VIAL ONE ×2 (15:35)
[2023-01-23] MEDS ORDERED: METOCLOPRAMIDE HCL 10 MG/2 ML VIAL ONE (15:35)
[2023-01-23] MEDS ORDERED: ROCURONIUM BROMIDE 10 MG/ML (ZEMURON) ONE (15:35)
[2023-01-23] MEDS ORDERED: WATER FOR IRRIGATION,STERILE 1,000 ML IRRIG.SOLN IR ONE (15:35)
[2023-01-23] MEDS ORDERED: MIDAZOLAM HCL 5 MG/ML VIAL (VERSED) IV ONE (15:35)
[2023-01-23 17:30] VITALS: BP_SYST 127
--- NOTE | 2023-01-23 17:40 | NUR ---
NOTE Pt came back to floor at 1725 via bed from PACU. Pt has 3 small incisions on abdomen with steri strips, 4th incision at belly button site has clean gauze and Tegaderm. Ackerman catheter intact and draining well. Pt used IS up to 2000 in PACU unit. IS at bedside and pt encouraged to use q1' 10X WA. IV in left forearm was dc'd by OR as it was red. Pt has RAMY midline which is patent and intact at this time. Right leg has SCD, Left leg has BP cuff. Pt is on O2 at 2L/nc, as pt tends to desat when she falls asleep per SPEECH COACH. 1730 - HR 60. RR 18, O2 sats 99%, Temp 97.1, BP on left lower ext 127/71. Call light within reach. Pt denies any needs at this time.
[2023-01-23 18:05] VITALS: BP_SYST 127
--- NOTE | 2023-01-23 19:00 | NUR ---
Note Pt resting in bed. 4 small lap sites dressing CDI at this time. Right midline intact and patent infusing IVF's well. Ackerman catheter intact and draining well. Pt has O2 on at 2L/nc at this time. Pt has been encouraged to use IS q1' and 10X while awake. Call light within reach.
[2023-01-23 20:00] VITALS: BP_SYST 112
[2023-01-23] MEDS: ATORVASTATIN 20 MG TABLET PO SCH (21:00)
[2023-01-23] MEDS ORDERED: POTASSIUM CHLORIDE IV SCH ×9 (21:00)
[2023-01-23] MEDS ORDERED: TPN PERIPHERAL IV SCH ×9 (21:00)
[2023-01-23] MEDS ORDERED: SODIUM ACETATE IV SCH ×9 (21:00)
[2023-01-23] MEDS ORDERED: [UNRECOGNIZED DRUG - OTHER] IV SCH ×9 (21:00)
[2023-01-24] MEDS: D5/0.45 NS 1,000 ML IV SCH ×2 (00:05→13:25)
[2023-01-24 01:24] VITALS: BP_SYST 95
[2023-01-24 03:00] VITALS: BP_SYST 112
[2023-01-24] MEDS: LEVOTHYROXINE SODIUM SL SCH (07:00)
[2023-01-24] MEDS: MINERAL OIL 30 ML UDC PO SCH ×4 (07:28→18:00)
[2023-01-24] MEDS: PIPERACILLIN/TAZO 3.375/DEX-IS 50 ML IV SCH ×4 (07:28→18:14)
[2023-01-24] MEDS: ASPIRIN 81 MG TABLET(ECOTRIN) PO SCH (09:35)
[2023-01-24] MEDS: TAMSULOSIN HCL 0.4 MG CAP PO SCH (09:35)
[2023-01-24] MEDS: POLYETHYLENE GLYCOL 3350, 17 GM/ POWD.PACK PO SCH ×2 (09:35→20:27)
[2023-01-24] MEDS: busPIRone HCL 5 MG TABLET PO SCH (09:35)
[2023-01-24] MEDS: DOCUSATE SODIUM 100 MG CAPSULE PO SCH ×2 (09:35→20:27)
[2023-01-24] MEDS: Effexor 37.5 MG TAB PO SCH ×2 (09:35→22:57)
[2023-01-24] MEDS: MULTIVITAMINS TAB 1 TABLET PO SCH (09:35)
[2023-01-24] MEDS: MILK OF MAGNESIA 30 ML UDC PO SCH (09:35)
[2023-01-24] MEDS: CHOLECALCIFEROL (VITAMIN D3) 5,000 UNIT TABLET PO SCH (09:35)
[2023-01-24] MEDS: METOPROLOL TARTRATE 25 MG TABLET PO SCH ×2 (09:36→20:27)
[2023-01-24 11:23] VITALS: BP_SYST 125
--- NOTE | 2023-01-24 15:31 | NUR ---
PHYSICAL THERAPY CO-SIGN The Physical Therapy Progress Notes documented by Operations Leader have been reviewed. Reviewed/Co-Signed by: Nahum Miller Documentation Done by:DEVON GARCIA Addendum: 01/24/23 at 1532 by Nahum Miller PT Amended: Links added.
[2023-01-24 15:33] VITALS: BP_SYST 117
[2023-01-24] MEDS: traMADol HCL HCL 50 MG TABLET (ULTRAM) PO PRN (18:17)
--- NOTE | 2023-01-24 18:55 | NUR ---
pt a&o, ivf infusing. incision dressings c/d/i. tramadol given for pain. fall precautions in place. good po intake.
[2023-01-24 20:23] VITALS: BP_SYST 117
[2023-01-24] MEDS: ATORVASTATIN 20 MG TABLET PO SCH (20:29)
[2023-01-24] MEDS ORDERED: TPN PERIPHERAL IV SCH ×9 (21:00)
[2023-01-24] MEDS ORDERED: SODIUM ACETATE IV SCH ×9 (21:00)
[2023-01-24] MEDS ORDERED: [UNRECOGNIZED DRUG - OTHER] IV SCH ×9 (21:00)
[2023-01-24] MEDS ORDERED: POTASSIUM CHLORIDE IV SCH ×9 (21:00)
[2023-01-25] MEDS: MINERAL OIL 30 ML UDC PO SCH ×4 (00:26→17:54)
[2023-01-25] MEDS: PIPERACILLIN/TAZO 3.375/DEX-IS 50 ML IV SCH ×4 (00:34→17:54)
[2023-01-25 01:51] VITALS: BP_SYST 153
--- NOTE | 2023-01-25 02:23 | NUR ---
pt resting in bed, no acute didstress noted
[2023-01-25] MEDS: D5/0.45 NS 1,000 ML IV SCH ×2 (02:45→12:43)
[2023-01-25 06:11] LABS: BASOPHILS % (AUTO) 0.5 % (0.0-2.0); EOSINOPHILS # (AUTO) 0.3 K/uL (0.0-0.4); EOSINOPHILS % (AUTO) 4.3 % (0.0-4.0); HEMATOCRIT 29.8 % (36-48); HEMOGLOBIN 9.9 g/dL (12.0-16.0); LYMPHOCYTES % (AUTO) 15.1 % (20.5-51.5); MEAN CORPUSCULAR HEMOGLOBIN 30 pg (27-31); MEAN CORPUSCULAR HGB CONC 33 % (32-36); MEAN CORPUSCULAR VOLUME 90 fL (79.0-98.0); MONOCYTES # (AUTO) 0.5 K/uL (0.0-1.0); MONOCYTES % (AUTO) 8.2 % (1.7-9.3); NEUTROPHILS # (AUTO) 4.7 K/uL (1.8-7.7); NEUTROPHILS % (AUTO) 71.9 % (40.0-70.0); PLATELET COUNT (AUTO) 305 K/uL (130-430); RED CELL DISTRIBUTION WIDTH 15.3 % (9.0-15.0); WHITE BLOOD COUNT (AUTO) 6.5 K/uL (4.8-10.8)
[2023-01-25 06:36] LABS: ALBUMIN 2.2 g/dL (3.4-4.8); CALCIUM 8.4 mg/dL (8.4-11.0); CREATININE 1.25 mg/dL (0.55-1.30); PHOSPHORUS 2.6 mg/dL (2.7-4.5); TOTAL BILIRUBIN 0.2 mg/dL (0.0-1.0)
[2023-01-25] MEDS: LEVOTHYROXINE SODIUM SL SCH (07:00)
--- NOTE | 2023-01-25 07:30 | NUR ---
MORNING ROUNDS: PATIENT RESTING IN THE BED. WITH TPN AND IV FLUIDS RUNNING AT RIGHT UPPER ARM,INTACT. ROOM AIR.WITH SMALL INCISION X 4,DRY INTACT. CALL LIGHT WITH IN REACH. BED LOCKED AT LOWEST POSITION. NO DISTRESS.
--- NOTE | 2023-01-25 07:52 | NUR ---
pt rested overnight, IVF infusing as prescribed.pt had episode of moderate watery stool. RN provided perineal care. no other distress noted endorsed care to am RN
[2023-01-25 08:00] VITALS: BP_SYST 162
[2023-01-25] MEDS: POLYETHYLENE GLYCOL 3350, 17 GM/ POWD.PACK PO SCH ×3 (09:00→21:00)
[2023-01-25] MEDS: MILK OF MAGNESIA 30 ML UDC PO SCH ×2 (09:00→09:31)
[2023-01-25] MEDS: DOCUSATE SODIUM 100 MG CAPSULE PO SCH ×3 (09:00→21:00)
[2023-01-25] MEDS: TAMSULOSIN HCL 0.4 MG CAP PO SCH (09:31)
[2023-01-25] MEDS: MULTIVITAMINS TAB 1 TABLET PO SCH (09:31)
[2023-01-25] MEDS: Effexor 37.5 MG TAB PO SCH ×2 (09:31→21:20)
[2023-01-25] MEDS: METOPROLOL TARTRATE 25 MG TABLET PO SCH (09:32)
[2023-01-25] MEDS: busPIRone HCL 5 MG TABLET PO SCH (09:32)
[2023-01-25] MEDS: CHOLECALCIFEROL (VITAMIN D3) 5,000 UNIT TABLET PO SCH (09:34)
[2023-01-25] MEDS: ASPIRIN 81 MG TABLET(ECOTRIN) PO SCH (09:58)
--- NOTE | 2023-01-25 11:30 | NUR ---
BOWEL MOVEMENT: HAD LOOSE BROWN STOOLS IN MODERATION. CARE RENDERED.
[2023-01-25 12:20] VITALS: BP_SYST 170
--- NOTE | 2023-01-25 12:51 | NUR ---
Catapres po: Catapres 0.1mg po given for elevated sbp>150.Rn will rechecked BP in 20mins.
[2023-01-25 16:00] VITALS: BP_SYST 145
[2023-01-25] MEDS: ACETAMINOPHEN 325 MG TABLET PO PRN (18:00)
--- NOTE | 2023-01-25 18:56 | NUR ---
END OF SHIFT: PATIENT RESTING.RIGHT UPPER ARM MIDLINE,INTACT.WALLACE IN SITU. CALL LIGHT WITH IN REACH. BED LOCKED AT LOWEST POSITION. NO ACUTE DISTRESS.
[2023-01-25 19:50] VITALS: BP_SYST 130
[2023-01-25] MEDS ORDERED: POTASSIUM CHLORIDE IV SCH ×9 (21:00)
[2023-01-25] MEDS ORDERED: SODIUM ACETATE IV SCH ×9 (21:00)
[2023-01-25] MEDS ORDERED: [UNRECOGNIZED DRUG - OTHER] IV SCH ×9 (21:00)
[2023-01-25] MEDS ORDERED: TPN PERIPHERAL IV SCH ×9 (21:00)
[2023-01-25] MEDS: ATORVASTATIN 20 MG TABLET PO SCH (21:21)
[2023-01-25] MEDS: METOPROLOL TARTRATE 50 MG TABLET PO SCH (21:22)
[2023-01-26] MEDS: PIPERACILLIN/TAZO 3.375/DEX-IS 50 ML IV SCH (01:06)
[2023-01-26 04:45] VITALS: BP_SYST 142
--- NOTE | 2023-01-26 05:25 | NUR ---
no acute distress noted overnight, pt resting in bed
[2023-01-26] MEDS: MINERAL OIL 30 ML UDC PO SCH ×4 (06:00→23:25)
[2023-01-26] MEDS: D5/0.45 NS 1,000 ML IV SCH ×2 (06:30→18:23)
[2023-01-26] MEDS: LEVOTHYROXINE SODIUM SL SCH (06:32)
--- NOTE | 2023-01-26 07:25 | NUR ---
endorsed care to incoming RN
--- NOTE | 2023-01-26 07:30 | NUR ---
MORNING ROUNDS: PATIENT LYING ON THE BED ,RESTING. IV FLUIDS AT RIGHT UPPER ARM MIDLINE INTACT. ROOM AIR. CALL LIGHT WITH IN REACH. BED LOCKED AT LOWEST POSITION.WALLACE DRAINING TO CLEAR URINE IN LARGE AMOUNT. NO COMPLAINED MADE.
[2023-01-26 08:00] VITALS: BP_SYST 180
[2023-01-26] MEDS: DOCUSATE SODIUM 100 MG CAPSULE PO SCH ×2 (08:56→09:08)
[2023-01-26] MEDS: CHOLECALCIFEROL (VITAMIN D3) 5,000 UNIT TABLET PO SCH (08:56)
[2023-01-26] MEDS: MULTIVITAMINS TAB 1 TABLET PO SCH (08:57)
[2023-01-26] MEDS: ASPIRIN 81 MG TABLET(ECOTRIN) PO SCH (08:57)
[2023-01-26] MEDS: POLYETHYLENE GLYCOL 3350, 17 GM/ POWD.PACK PO SCH ×2 (09:00→21:00)
[2023-01-26] MEDS: MILK OF MAGNESIA 30 ML UDC PO SCH (09:00)
[2023-01-26] MEDS: METOPROLOL TARTRATE 50 MG TABLET PO SCH ×2 (09:02→21:00)
[2023-01-26] MEDS: TAMSULOSIN HCL 0.4 MG CAP PO SCH (09:02)
[2023-01-26] MEDS: busPIRone HCL 5 MG TABLET PO SCH (09:02)
[2023-01-26] MEDS: Effexor 37.5 MG TAB PO SCH ×2 (09:06→21:00)
[2023-01-26 09:08] LABS: ALBUMIN 2.7 g/dL (3.4-4.8); CALCIUM 9.1 mg/dL (8.4-11.0); CREATININE 1.11 mg/dL (0.55-1.30); PHOSPHORUS 2.8 mg/dL (2.7-4.5); TOTAL BILIRUBIN 0.2 mg/dL (0.0-1.0)
[2023-01-26 12:00] VITALS: BP_SYST 152
--- NOTE | 2023-01-26 12:50 | NUR ---
CATAPRES PO: [id number], DUE CATAPRES PO GIVEN ORDERED.
--- NOTE | 2023-01-26 13:10 | NUR ---
RECHECKED BP: ZU=202/100 AFTER TAKING CATAPRES.
[2023-01-26 16:58] VITALS: BP_SYST 144
[2023-01-26 19:00] VITALS: BP_SYST 117
--- NOTE | 2023-01-26 19:00 | NUR ---
END OF SHIFT; ENDORSED TO NIGHT NURSE SOLORZANO.PATIENT SLEEPING QUIETLY. RIGHT UPPER ARM MIDLINE,INTACT.ENCOURAGE TO EAT AND DRINK ENSURE,TOOK HALF OF IT EARLIER. CALL LIGHT WITH IN REACH.WALLACE INTACT. BED LOCKED AT LOWEST POSITION. NO ACUTE DISTRESS.
--- NOTE | 2023-01-26 19:15 | NUR ---
change of shift.pt.quiescent;lethargic affect;sullen.pt.presents mid-line location rt.bicept intact;patent.tpn infusing. pt.presents dhaliwal cath intact;patent.pt.presents dhaliwal cath intact;patent.pt.presents affect;lethargic.pt.capable to reposition self.o2-sat%=98%.call light/telephone w/in access of the pt.
[2023-01-26 20:00] VITALS: BP_SYST 117
--- NOTE | 2023-01-26 20:00 | NUR ---
pt.assessed.v/s assessed values wnl.no c/o pain,nausea.mid-line intact iv fluids/tpn infusing.dhaliwal cath intact;patent. pt.capable to reposition self.diet status soft.pt.apprised snack/beverages are available w/in the shift.no requests posited @this hour.call light/telephone placed w/in access of the pt.
[2023-01-26] MEDS ORDERED: TPN PERIPHERAL IV SCH ×9 (21:00)
[2023-01-26] MEDS: ATORVASTATIN 20 MG TABLET PO SCH (21:00)
[2023-01-26] MEDS ORDERED: SODIUM ACETATE IV SCH ×9 (21:00)
[2023-01-26] MEDS ORDERED: POTASSIUM CHLORIDE IV SCH ×9 (21:00)
[2023-01-26] MEDS ORDERED: [UNRECOGNIZED DRUG - OTHER] IV SCH ×9 (21:00)
--- NOTE | 2023-01-26 21:00 | NUR ---
2100p medications pt.refused the administration.conferred w pt.the indications of the medications.no c/o pain, nausea.
--- NOTE | 2023-01-26 22:00 | NUR ---
pt.assessed.pt.quiescent.mid-line intact iv fluids/tpn infusing.dhaliwal cath intact;patent per flacc pain mgx pt.absent facial grimaces/body posturing.call light/telephone placed w/in access of the pt.
[2023-01-27] VITALS: BP_SYST 122
--- NOTE | 2023-01-27 | NUR ---
pt.assessed.v/s assessed values wnl.no c/o pain,nausea.pt.refused mineral oil:30ml midnight dose.mid-line intact tpn infusing.dhaliwal cath intact.pt.capable to reposition self.call light/telephone placed w/in access of the pt.
--- NOTE | 2023-01-27 02:00 | NUR ---
pt.assessed.pt.quiescent.mid-line intact iv fluids/tpn infosd fol;ey acat ict.ewprf flac capia mgxc [pt.abs afcoagpemces/body posting.pt.capbvlto meghan slf.ca;ight/telegp yves payton/kathrine so thpt./
--- NOTE | 2023-01-27 04:00 | NUR ---
pt.assessed.pt.quiescent.mid-line intact iv fluids/tpn infusing.per flacc pain mgx pt.absent facial grimaces/body posturing.pt.capable to reposition self.call light/telephone w/in access of the pt.
[2023-01-27] MEDS: LEVOTHYROXINE SODIUM SL SCH (05:58)
[2023-01-27] MEDS: MINERAL OIL 30 ML UDC PO SCH ×3 (05:58→16:42)
--- NOTE | 2023-01-27 06:00 | NUR ---
pt.assessed.pt.quiescent.per flacc pain mgx pt.absent facial grimaces/body posturing.mid-line intact iv fluids/tpn infusing, dhaliwal cath intact.pt.capable to reposition self.call light/telephone w/in access of the pt.
[2023-01-27 07:45] LABS: ALBUMIN 2.3 g/dL (3.4-4.8); CALCIUM 8.9 mg/dL (8.4-11.0); CREATININE 1.01 mg/dL (0.55-1.30); PHOSPHORUS 2.7 mg/dL (2.7-4.5); TOTAL BILIRUBIN 0.2 mg/dL (0.0-1.0)
[2023-01-27 08:00] VITALS: BP_SYST 131
[2023-01-27] MEDS: D5/0.45 NS 1,000 ML IV SCH (08:05)
[2023-01-27] MEDS: DOCUSATE SODIUM 100 MG CAPSULE PO SCH (09:00)
[2023-01-27] MEDS: MILK OF MAGNESIA 30 ML UDC PO SCH (09:00)
--- NOTE | 2023-01-27 09:00 | NUR ---
patient had large semi liquid bm, luis care provided and patient refusing colace, mom and miralax
[2023-01-27] MEDS: ASPIRIN 81 MG TABLET(ECOTRIN) PO SCH (09:34)
[2023-01-27] MEDS: busPIRone HCL 5 MG TABLET PO SCH (09:34)
[2023-01-27] MEDS: TAMSULOSIN HCL 0.4 MG CAP PO SCH (09:34)
[2023-01-27] MEDS: CHOLECALCIFEROL (VITAMIN D3) 5,000 UNIT TABLET PO SCH (09:34)
[2023-01-27] MEDS: METOPROLOL TARTRATE 50 MG TABLET PO SCH (09:35)
[2023-01-27] MEDS: MULTIVITAMINS TAB 1 TABLET PO SCH (09:35)
[2023-01-27] MEDS: POLYETHYLENE GLYCOL 3350, 17 GM/ POWD.PACK PO SCH (09:51)
[2023-01-27] MEDS: Effexor 37.5 MG TAB PO SCH (10:03)
[2023-01-27 12:00] VITALS: BP_SYST 140
--- NOTE | 2023-01-27 15:41 | NUR ---
PHYSICAL THERAPY CO-SIGN The Physical Therapy Progress Notes documented by Devulcanizer Loader have been reviewed. Reviewed/Co-Signed by: Art Cao Documentation Done by:DEVON GARCIA Addendum: 01/27/23 at 1541 by Art Cao PT Amended: Links added.
[2023-01-27 16:00] VITALS: BP_SYST 132
--- NOTE | 2023-01-27 16:03 | NUR ---
orders obtained for dhaliwal to be removed, dc and waiting for patient to void so she can dc home
[2023-01-27 18:21] VITALS: BP_SYST 132
--- NOTE | 2023-01-27 18:45 | NUR ---
patient voided large amount into bed pad, bladder scanned and 10ml urine noted, bladder soft and non distended,
--- NOTE | 2023-01-27 18:54 | NUR ---
midline in r upper arm, no swelling or tenderness noted at site, cath intact
--- NOTE | 2023-01-27 20:30 | NUR ---
DISCHARGE: Patient received from AM shift nurse during change of shift. No s/s of distress was noted at this time. Discharge Order present. came to pear picker patient and Discharge education and packet given on bowel impaction and post surgical care after a lap cholecystectomy. Verbalized understanding. Patient care was given prior to discharge and patient was taken by wheel chair outside and assisted on private vehicle.
[2023-01-27] MEDS ORDERED: TPN PERIPHERAL IV SCH ×9 (21:00)
[2023-01-27] MEDS ORDERED: POTASSIUM ACETATE IV SCH ×9 (21:00)
[2023-01-27] MEDS ORDERED: [UNRECOGNIZED DRUG - OTHER] IV SCH ×9 (21:00)
[2023-01-27] MEDS ORDERED: SODIUM CHLORIDE IV SCH ×9 (21:00)
== END 2023-01-27 20:33 | disposition home or self-care (01) | DRG 418 ==
LOC: SED 06:46 → SMU 10:56
PROVIDERS: ADMIT Family Medicine; ATTEND Family Medicine
PROC: 05H733Z Insertion of Infusion Device into Right Axillary Vein, Percutaneous Approach (ICD-10-PCS; 2023-01-22)
PROC: 0FN44ZZ Release Gallbladder, Percutaneous Endoscopic Approach (ICD-10-PCS; 2023-01-23)
PROC: BF121ZZ Fluoroscopy of Gallbladder using Low Osmolar Contrast (ICD-10-PCS; 2023-01-23)
PROC: 0FT44ZZ Resection of Gallbladder, Percutaneous Endoscopic Approach (ICD-10-PCS; principal; 2023-01-23 14:06)
DX: K80.10 Calculus of gallbladder with chronic cholecystitis without obstruction (principal); N39.0 Urinary tract infection, site not specified; I10 Essential (primary) hypertension; I25.10 Atherosclerotic heart disease of native coronary artery without angina pectoris; K52.89 Other specified noninfective gastroenteritis and colitis; K56.41 Fecal impaction; T83.021A Displacement of indwelling urethral catheter, initial encounter; Y73.8 Miscellaneous gastroenterology and urology devices associated with adverse incidents, not elsewhere classified; Z20.822 Contact with and (suspected) exposure to COVID-19; E03.9 Hypothyroidism, unspecified; Z86.74 Personal history of sudden cardiac arrest; Z79.82 Long term (current) use of aspirin; Z79.899 Other long term (current) drug therapy; Z90.49 Acquired absence of other specified parts of digestive tract
CPT/HCPCS: 36415; 71045; 74018; 74181; 74300; 76376; 78226; 80048; 80053; 81003; 82150; 83605; 83690; 83735; 84100; 84478; 85025; 85610-TC; 85730-TC; 86886; 86900; 86901; 87040; 87081; 87086; 88304; 93005; 96374; 96375; 96376; 97110-GP; 97163-GP; 97530-GP; 99285; A9537; J0690; J1100; J1885; J2250; J2270; J2405; J2543; J2704; J2710; J2765; J3010; J3475; J3480; J3490; J7030; J7120; J7131; Q0163; Q9967

== ENCOUNTER 2023-04-13 14:16 | Inpatient (IN) | payer OTHER, MEDICAID ==
[~2023-04-13] VITALS: Ht 157.5 cm; Wt 54.4 kg
[~2023-04-13 14:16] MED LIST: ACET325T53 PO; ANT30 PO; ASPI-1393 PO; BUSP5TAB3 PO; CLON0.1T PO; DIPH25CA83 PO; DOCU-144 PO; EFF37 PO; LEVO125C2 PO; LIP20 PO; METO25TA6 PO; MOM PO; MULT-1089 PO; ONDA-8 TL; PRO40 PO; TAMS-11 PO; TRAM50TA2 PO; VITD400 PO
[2023-04-13 14:21] VITALS: BP_SYST 144
[2023-04-13] MEDS ORDERED: ONDANSETRON HCL 4 MG/2 ML VIAL IVP ONE (14:30)
[2023-04-13] MEDS ORDERED: NACL 0.9% 1,000 ML IV ONE ×2 (14:30→15:30)
[2023-04-13 15:00] LABS: BASOPHILS % (AUTO) 0.3 % (0.0-2.0); EOSINOPHILS # (AUTO) 0.1 K/uL (0.0-0.4); EOSINOPHILS % (AUTO) 1.3 % (0.0-4.0); HEMATOCRIT 41.6 % (36-48); HEMOGLOBIN 13.8 g/dL (12.0-16.0); LYMPHOCYTES # (AUTO) 0.7 K/uL (1.0-5.5); LYMPHOCYTES % (AUTO) 9.6 % (20.5-51.5); MEAN CORPUSCULAR HEMOGLOBIN 30 pg (27-31); MEAN CORPUSCULAR HGB CONC 33 % (32-36); MEAN CORPUSCULAR VOLUME 90 fL (79.0-98.0); MONOCYTES # (AUTO) 0.3 K/uL (0.0-1.0); NEUTROPHILS # (AUTO) 6.4 K/uL (1.8-7.7); NEUTROPHILS % (AUTO) 84.8 % (40.0-70.0); PLATELET COUNT (AUTO) 240 K/uL (130-430); RED BLOOD CELL COUNT(AUTO) 4.65 MIL/uL (4.2-6.2); RED CELL DISTRIBUTION WIDTH 14.4 % (9.0-15.0); WHITE BLOOD COUNT (AUTO) 7.5 K/uL (4.8-10.8)
[2023-04-13 15:09] LABS: ANION GAP 9 (5-15); CHLORIDE 101 mmol/L (98-107); CREATININE 1.24 mg/dL (0.55-1.30); GFR AFRICAN AMERICAN 58 mL/min (>90); GLUCOSE 97 mg/dL (70-99); UREA NITROGEN, BLOOD 22 mg/dL (8-21)
[2023-04-13 15:14] LABS: ALANINE AMINOTRANSFERASE 355 U/L (12-78); ALBUMIN 3.7 g/dL (3.4-4.8); ASPARTATE AMINOTRANSFERASE 64 U/L (10-37); TOTAL BILIRUBIN 0.4 mg/dL (0.0-1.0)
[2023-04-13 16:18] LABS: BILIRUBIN,URINE NEGATIVE (NEGATIVE); BLOOD, URINE TRACE (NEGATIVE); CLARITY/URINE CLOUDY (CLEAR); COLOR,URINE YELLOW (YELLOW); GLUCOSE,URINE NEGATIVE (NEGATIVE); KETONES,URINE NEGATIVE (NEGATIVE); LEUKOCYTE ESTERASE ,URINE NEGATIVE (NEGATIVE); NITRITE, URINE NEGATIVE (NEGATIVE); PH,URINE 7.5 (5.0-8.0); PROTEIN URINE 1+ (NEGATIVE); UROBILINOGEN,URINE 0.2 (0.2-1.0)
[2023-04-13 16:33] LABS: BACTERIA,URINE RARE /HPF (None Seen); RBC,URINE 0-3 /HPF (0-3); WBC,URINE 0-3 /HPF (0-3)
[2023-04-13 16:34] LABS: MUCUS,URINE 1+ /LPF (None Seen); URINE AMORPHOUS PHOSPHATES 3+ /HPF (None Seen)
[2023-04-13] MEDS ORDERED: EFF37 PO (16:52)
[2023-04-13] MEDS ORDERED: BUS5 PO (16:52)
[2023-04-13 17:08] LABS: FREE T4 (FREE THYROXINE) 1.6 ng/dl (0.8-1.5); THYROID STIMULATING HORMONE 0.45 uIu/mL (0.36-3.74)
[2023-04-13] MEDS ORDERED: MAG-AL HYDROX/SIMETH 30 ML UDC PO PRN (17:30)
[2023-04-13] MEDS ORDERED: traMADol HCL HCL 50 MG TABLET (ULTRAM) PO PRN (17:30)
[2023-04-13] MEDS ORDERED: ONDANSETRON 4 MG ODT TAB TL PRN (17:30)
[2023-04-13] MEDS ORDERED: ACETAMINOPHEN 325 MG TABLET PO PRN (17:30)
[2023-04-13] MEDS ORDERED: cloNIDine HCL 0.1 MG TABLET PO PRN (17:30)
[2023-04-13 18:10] VITALS: BP_SYST 154
[2023-04-13] MEDS: NACL 0.9% 1,000 ML IV SCH (18:43)
[2023-04-13 20:00] VITALS: BP_SYST 124
[2023-04-13] MEDS: ATORVASTATIN 20 MG TABLET PO SCH (21:23)
[2023-04-13] MEDS: ENOXAPARIN SODIUM 30 MG/0.3 ML SYRINGE SUBCUT SCH (21:23)
[2023-04-13] MEDS: METOPROLOL TARTRATE 25 MG TABLET PO SCH (21:23)
[2023-04-13] MEDS: Effexor 37.5 MG TAB PO SCH (21:23)
[2023-04-13] MEDS: DOCUSATE SODIUM 100 MG CAPSULE PO SCH (21:23)
[2023-04-13] MEDS: DIPHENHYDRAMINE HCL 25 MG CAPSULE PO PRN (21:23)
[2023-04-14 00:13] VITALS: BP_SYST 122
[2023-04-14] MEDS: NACL 0.9% 1,000 ML IV SCH ×3 (03:30→23:30)
[2023-04-14 05:35] LABS: BASOPHILS % (AUTO) 0.5 % (0.0-2.0); EOSINOPHILS # (AUTO) 0.2 K/uL (0.0-0.4); EOSINOPHILS % (AUTO) 2.6 % (0.0-4.0); HEMATOCRIT 34.5 % (36-48); HEMOGLOBIN 11.6 g/dL (12.0-16.0); LYMPHOCYTES # (AUTO) 1.3 K/uL (1.0-5.5); LYMPHOCYTES % (AUTO) 18.7 % (20.5-51.5); MEAN CORPUSCULAR HEMOGLOBIN 30 pg (27-31); MEAN CORPUSCULAR HGB CONC 34 % (32-36); MEAN CORPUSCULAR VOLUME 89 fL (79.0-98.0); MONOCYTES # (AUTO) 0.5 K/uL (0.0-1.0); MONOCYTES % (AUTO) 6.8 % (1.7-9.3); NEUTROPHILS # (AUTO) 4.9 K/uL (1.8-7.7); NEUTROPHILS % (AUTO) 71.4 % (40.0-70.0); PLATELET COUNT (AUTO) 232 K/uL (130-430); RED BLOOD CELL COUNT(AUTO) 3.87 MIL/uL (4.2-6.2); RED CELL DISTRIBUTION WIDTH 14.2 % (9.0-15.0); WHITE BLOOD COUNT (AUTO) 6.9 K/uL (4.8-10.8)
[2023-04-14 06:13] LABS: CALCIUM 8.9 mg/dL (8.4-11.0); CREATININE 1.1 mg/dL (0.55-1.30); TOTAL BILIRUBIN 0.6 mg/dL (0.0-1.0)
[2023-04-14 08:05] VITALS: BP_SYST 123
[2023-04-14] MEDS: METOPROLOL TARTRATE 25 MG TABLET PO SCH ×2 (08:52→21:29)
[2023-04-14] MEDS: busPIRone HCL 5 MG TABLET PO SCH (08:52)
[2023-04-14] MEDS: PANTOPRAZOLE SODIUM 40 MG TAB PO SCH (08:52)
[2023-04-14] MEDS: DOCUSATE SODIUM 100 MG CAPSULE PO SCH ×2 (08:52→21:29)
[2023-04-14] MEDS: MILK OF MAGNESIA 30 ML UDC PO SCH (08:53)
[2023-04-14] MEDS: CHOLECALCIFEROL (VITAMIN D3) 2,000 UNIT TABLET PO SCH (08:53)
[2023-04-14] MEDS: MULTIVITAMINS TAB 1 TABLET PO SCH (08:53)
[2023-04-14] MEDS: ASPIRIN 81 MG TABLET(ECOTRIN) PO SCH (09:04)
[2023-04-14 09:54] LABS: ACETAMINOPHEN < 1 ug/mL (1-30); TOTAL IRON BIND. CAPACITY 178 ug/dL (250-450)
[2023-04-14] MEDS ORDERED: GADOTERATE MEGLUMINE 7.5 MMOL/15 ML VIAL IV ONE (09:54)
[2023-04-14 10:09] LABS: INR 1.1 (0.8-1.2); PROTHROMBIN TIME 11.6 SECS (9.5-12.5)
[2023-04-14 11:31] VITALS: BP_SYST 129
[2023-04-14] MEDS: Effexor 37.5 MG TAB PO SCH ×2 (11:55→21:29)
[2023-04-14] MEDS ORDERED: LORazepam 2 MG/ML VIAL IVP ONE (12:45)
[2023-04-14 16:31] VITALS: BP_SYST 130
[2023-04-14 20:00] VITALS: BP_SYST 162
[2023-04-14] MEDS ORDERED: TAMSULOSIN HCL 0.4 MG CAP PO SCH (21:00)
[2023-04-14] MEDS: ATORVASTATIN 20 MG TABLET PO SCH (21:29)
[2023-04-14] MEDS: ENOXAPARIN SODIUM 30 MG/0.3 ML SYRINGE SUBCUT SCH (21:29)
[2023-04-14] MEDS: DIPHENHYDRAMINE HCL 25 MG CAPSULE PO PRN (21:31)
[2023-04-15 00:08] VITALS: BP_SYST 148
[2023-04-15 07:39] LABS: BARBITURATE, URINE NEGATIVE (NEG <=200); BENZODIAZEPINE, URINE NEGATIVE (NEG <=150); CANNABINOID, URINE NEGATIVE (NEG <=50); COCAINE, URINE NEGATIVE (NEG <=150); METHAMPHETAMINES SCREEN,URINE NEGATIVE (NEG <=500); OPIATE, URINE NEGATIVE (NEG <=100); PHENCYCLIDINE SCREEN,URINE NEGATIVE (NEG <=25); URINE AMPHETAMINE NEGATIVE (NEG <=500); URINE METHADONE NEGATIVE (NEG <=200); URINE OXYCODONE SCREEN NEGATIVE (NEG <=100); URINE PROPOXYPHENE SCREEN NEGATIVE (NEG <=300)
[2023-04-15 07:44] LABS: UR TRICYCLIC ANTIDEPRESSANTS NEGATIVE (NEG <=300)
[2023-04-15 08:00] VITALS: BP_SYST 125
[2023-04-15 08:06] LABS: ALPHA-1-ANTITRYPSIN, S 159 mg/dL (101-187); FERRITIN 523 ng/mL (15-150); HEPATITIS A AB, IgM Negative (Negative); HEPATITIS B CORE AB, IgM Negative (Negative); HEPATITIS B SURFACE AG Negative (Negative)
[2023-04-15 08:17] LABS: ALBUMIN 3.3 g/dL (3.4-4.8); BILIRUBIN,DIRECT 0.1 mg/dL (0.0-0.3); TOTAL BILIRUBIN 0.4 mg/dL (0.0-1.0)
[2023-04-15] MEDS ORDERED: LORazepam 2 MG/ML VIAL ONE (08:35)
[2023-04-15] MEDS: MILK OF MAGNESIA 30 ML UDC PO SCH (08:38)
[2023-04-15] MEDS: METOPROLOL TARTRATE 25 MG TABLET PO SCH (08:38)
[2023-04-15] MEDS: Effexor 37.5 MG TAB PO SCH (08:38)
[2023-04-15] MEDS: MULTIVITAMINS TAB 1 TABLET PO SCH (08:38)
[2023-04-15] MEDS: DOCUSATE SODIUM 100 MG CAPSULE PO SCH (08:39)
[2023-04-15] MEDS: ASPIRIN 81 MG TABLET(ECOTRIN) PO SCH (08:39)
[2023-04-15] MEDS: CHOLECALCIFEROL (VITAMIN D3) 2,000 UNIT TABLET PO SCH (08:39)
[2023-04-15] MEDS: busPIRone HCL 5 MG TABLET PO SCH (08:39)
[2023-04-15] MEDS: PANTOPRAZOLE SODIUM 40 MG TAB PO SCH (08:39)
[2023-04-15] MEDS: NACL 0.9% 1,000 ML IV SCH (09:30)
[2023-04-15 10:06] LABS: ANTI NUCLEAR AB WITH REFLEX Negative (Negative)
[2023-04-15 11:10] VITALS: BP_SYST 138
[2023-04-15 16:23] VITALS: BP_SYST 135
[2023-04-15 17:23] VITALS: BP_SYST 133
[2023-04-17 14:07] LABS: ANTI-SMOOTH MUSCLE AB 13 Units (0-19)
== END 2023-04-15 18:20 | disposition home or self-care (01) | DRG 72 ==
LOC: SED 14:16 → STU 16:57
PROVIDERS: ADMIT Family Medicine; ATTEND Family Medicine
DX: G93.41 Metabolic encephalopathy (principal); E86.0 Dehydration; E78.5 Hyperlipidemia, unspecified; F41.9 Anxiety disorder, unspecified; E03.9 Hypothyroidism, unspecified; Z20.822 Contact with and (suspected) exposure to COVID-19; I10 Essential (primary) hypertension; K59.09 Other constipation; R79.89 Other specified abnormal findings of blood chemistry; Z90.49 Acquired absence of other specified parts of digestive tract
CPT/HCPCS: 36415; 70450-TC; 70551; 70553; 71045; 76376; 76700-TC; 80053; 80074; 80076; 80307; 81000; 82103; 82140; 82150; 82390; 82550; 82728; 83516; 83540; 83550; 83605; 83690; 83880; 84439; 84443; 84484; 85025; 85610-TC; 86038; 87040; 87086; 93005; 93880; 95816; 96361; 96374; 97110-GP; 97116-GP; 97530-GP; 99285; A9575; G0378; G0480; G0481; J1650; J2060; J2405; Q0163; Q9967

== ENCOUNTER 2023-04-22 11:14 | Inpatient (IN) | payer OTHER, MEDICAID ==
[~2023-04-22] VITALS: Ht 162.6 cm; Wt 72.6 kg
[2023-04-22 11:17] VITALS: BP_SYST 172
[2023-04-22] MEDS ORDERED: NITROGLYCERIN 1 INCH (GM) OINT. TP ONE (11:19)
[2023-04-22] MEDS ORDERED: MORPHINE 4 MG INJ. 4 MG/ML VIAL IVP ONE (11:19)
[2023-04-22] MEDS ORDERED: ONDANSETRON HCL 4 MG/2 ML VIAL IVP ONE (11:30)
[2023-04-22] MEDS ORDERED: ONDA-8 TL (11:41)
[2023-04-22] MEDS ORDERED: HALOPERIDOL LACTATE 5 MG/ML VIAL IVP ONE (12:00)
[2023-04-22] MEDS ORDERED: DIPHENHYDRAMINE INJ 50 MG/ML VIAL IVP ONE (12:00)
[2023-04-22 12:09] LABS: BASOPHILS # (AUTO) 0.1 K/uL (0.0-0.2); BASOPHILS % (AUTO) 0.7 % (0.0-2.0); EOSINOPHILS # (AUTO) 0.3 K/uL (0.0-0.4); EOSINOPHILS % (AUTO) 3.9 % (0.0-4.0); HEMATOCRIT 37.9 % (36-48); LYMPHOCYTES # (AUTO) 0.9 K/uL (1.0-5.5); LYMPHOCYTES % (AUTO) 11.9 % (20.5-51.5); MEAN CORPUSCULAR HEMOGLOBIN 30 pg (27-31); MEAN CORPUSCULAR HGB CONC 34 % (32-36); MEAN CORPUSCULAR VOLUME 87 fL (79.0-98.0); MONOCYTES # (AUTO) 0.6 K/uL (0.0-1.0); MONOCYTES % (AUTO) 7.2 % (1.7-9.3); NEUTROPHILS # (AUTO) 5.8 K/uL (1.8-7.7); NEUTROPHILS % (AUTO) 76.3 % (40.0-70.0); PLATELET COUNT (AUTO) 315 K/uL (130-430); RED BLOOD CELL COUNT(AUTO) 4.34 MIL/uL (4.2-6.2); RED CELL DISTRIBUTION WIDTH 14.4 % (9.0-15.0); WHITE BLOOD COUNT (AUTO) 7.6 K/uL (4.8-10.8)
[2023-04-22 12:30] LABS: ANION GAP 5 (5-15); CALCIUM 9.1 mg/dL (8.4-11.0); CHLORIDE 88 mmol/L (98-107); CREATININE 0.96 mg/dL (0.55-1.30); GFR AFRICAN AMERICAN 78 mL/min (>90); GLUCOSE 93 mg/dL (70-99); UREA NITROGEN, BLOOD 12 mg/dL (8-21)
[2023-04-22] MEDS ORDERED: LABETALOL HCL 20 MG/4 ML CARTRIDGE IVP ONE (12:30)
[2023-04-22 12:34] LABS: PROTHROMBIN TIME 10.4 SECS (9.5-12.5)
[2023-04-22 12:38] LABS: ALANINE AMINOTRANSFERASE 95 U/L (12-78); ALBUMIN 3.6 g/dL (3.4-4.8); ASPARTATE AMINOTRANSFERASE 29 U/L (10-37); TOTAL BILIRUBIN 0.4 mg/dL (0.0-1.0)
[2023-04-22] MEDS ORDERED: hydrALAZINE HCL 20 MG/ML VIAL IVP ONE (13:45)
[2023-04-22] MEDS ORDERED: PANT40TA45 PO (14:10)
[2023-04-22] MEDS ORDERED: DOCU-156 PO (14:10)
[2023-04-22] MEDS ORDERED: LEVO125T8 PO (14:10)
[2023-04-22] MEDS ORDERED: NITROGLYCERIN 0.4 MG TAB.SUBL SL PRN (17:45)
[2023-04-22] MEDS ORDERED: ONDANSETRON 4 MG ODT TAB TL PRN (18:15)
[2023-04-22] MEDS ORDERED: cloNIDine HCL 0.1 MG TABLET PO PRN (18:15)
[2023-04-22] MEDS ORDERED: DIPHENHYDRAMINE HCL 25 MG CAPSULE PO PRN (18:15)
[2023-04-22] MEDS ORDERED: DOCUSATE SODIUM 100 MG CAPSULE PO PRN (18:15)
[2023-04-22] MEDS ORDERED: ACETAMINOPHEN 325 MG TABLET PO PRN (18:15)
[2023-04-22] MEDS ORDERED: traMADol HCL HCL 50 MG TABLET (ULTRAM) PO PRN (18:15)
[2023-04-22] MEDS ORDERED: MAG-AL HYDROX/SIMETH 30 ML UDC PO PRN (18:15)
[2023-04-22] MEDS ORDERED: KETOROLAC TROMETHAMINE 15 MG VIAL IVP PRN (18:30)
[2023-04-22 21:00] VITALS: BP_SYST 147
[2023-04-22] MEDS: DOCUSATE SODIUM 100 MG CAPSULE PO SCH (22:25)
[2023-04-22] MEDS: ATORVASTATIN 20 MG TABLET PO SCH (22:25)
[2023-04-22] MEDS: Effexor 37.5 MG TAB PO SCH (22:25)
[2023-04-22] MEDS: KCL 20 mEq in NS 1000 mL 1,000 ML IV SCH (22:25)
[2023-04-22] MEDS: METOPROLOL TARTRATE 25 MG TABLET PO SCH (22:26)
[2023-04-22] MEDS: ENOXAPARIN SODIUM 40 MG/0.4 ML SYRINGE SUBCUT SCH (22:27)
[2023-04-23 01:12] VITALS: BP_SYST 108
[2023-04-23 02:07] LABS: BILIRUBIN,URINE NEGATIVE (NEGATIVE); BLOOD, URINE NEGATIVE (NEGATIVE); COLOR,URINE YELLOW (YELLOW); GLUCOSE,URINE NEGATIVE (NEGATIVE); KETONES,URINE NEGATIVE (NEGATIVE); LEUKOCYTE ESTERASE ,URINE 2+ (NEGATIVE); NITRITE, URINE POSITIVE (NEGATIVE); PH,URINE 7.5 (5.0-8.0); PROTEIN URINE NEGATIVE (NEGATIVE); UROBILINOGEN,URINE 0.2 (0.2-1.0)
[2023-04-23 02:11] LABS: CLARITY/URINE CLOUDY (CLEAR)
[2023-04-23 02:20] LABS: RBC,URINE 0-3 /HPF (0-3); WBC,URINE 20-50 /HPF (0-3)
[2023-04-23 02:21] LABS: BACTERIA,URINE MANY /HPF (None Seen)
[2023-04-23 02:26] LABS: BARBITURATE, URINE NEGATIVE (NEG <=200); BENZODIAZEPINE, URINE NEGATIVE (NEG <=150); CANNABINOID, URINE NEGATIVE (NEG <=50); COCAINE, URINE NEGATIVE (NEG <=150); METHAMPHETAMINES SCREEN,URINE NEGATIVE (NEG <=500); PHENCYCLIDINE SCREEN,URINE NEGATIVE (NEG <=25); URINE AMPHETAMINE NEGATIVE (NEG <=500); URINE METHADONE NEGATIVE (NEG <=200); URINE OXYCODONE SCREEN NEGATIVE (NEG <=100); URINE PROPOXYPHENE SCREEN NEGATIVE (NEG <=300)
[2023-04-23 02:27] LABS: UR TRICYCLIC ANTIDEPRESSANTS NEGATIVE (NEG <=300)
[2023-04-23 02:29] LABS: OPIATE, URINE POSITIVE (NEG <=100)
[2023-04-23] MEDS: KCL 20 mEq in NS 1000 mL 1,000 ML IV SCH ×2 (06:00→16:10)
[2023-04-23] MEDS: LEVOTHYROXINE SODIUM 0.125 MG TABLET PO SCH (06:50)
[2023-04-23 08:00] VITALS: BP_SYST 121
[2023-04-23 08:13] LABS: CALCIUM 9.1 mg/dL (8.4-11.0); CREATININE 1.07 mg/dL (0.55-1.30)
[2023-04-23 08:31] LABS: ALBUMIN 3.2 g/dL (3.4-4.8); TOTAL BILIRUBIN 0.3 mg/dL (0.0-1.0)
[2023-04-23] MEDS: MILK OF MAGNESIA 30 ML UDC PO SCH (08:48)
[2023-04-23] MEDS: METOPROLOL TARTRATE 25 MG TABLET PO SCH ×2 (08:49→21:34)
[2023-04-23] MEDS: PANTOPRAZOLE SODIUM 40 MG TAB PO SCH (08:49)
[2023-04-23] MEDS: ASPIRIN 81 MG TABLET(ECOTRIN) PO SCH (08:49)
[2023-04-23] MEDS: MULTIVITAMINS TAB 1 TABLET PO SCH (08:49)
[2023-04-23] MEDS: DOCUSATE SODIUM 100 MG CAPSULE PO SCH ×2 (08:50→21:33)
[2023-04-23] MEDS: CHOLECALCIFEROL (VITAMIN D3) 2,000 UNIT TABLET PO SCH (08:50)
[2023-04-23] MEDS: Effexor 37.5 MG TAB PO SCH ×2 (08:57→21:33)
[2023-04-23] MEDS ORDERED: busPIRone HCL 5 MG TABLET PO SCH (09:00)
[2023-04-23] MEDS ORDERED: LEVOTHYROXINE SODIUM PO SCH (09:00)
[2023-04-23] MEDS ORDERED: TAMSULOSIN HCL 0.4 MG CAP PO SCH (09:00)
[2023-04-23 11:57] VITALS: BP_SYST 105
[2023-04-23 16:54] VITALS: BP_SYST 130
[2023-04-23 19:00] VITALS: BP_SYST 150
[2023-04-23 20:00] VITALS: BP_SYST 150
[2023-04-23] MEDS: ATORVASTATIN 20 MG TABLET PO SCH (21:34)
[2023-04-23] MEDS: ENOXAPARIN SODIUM 40 MG/0.4 ML SYRINGE SUBCUT SCH (21:35)
[2023-04-24 01:41] VITALS: BP_SYST 145
[2023-04-24] MEDS: KCL 20 mEq in NS 1000 mL 1,000 ML IV SCH ×3 (02:00→20:36)
[2023-04-24 03:28] LABS: CALCIUM 8.4 mg/dL (8.4-11.0); CREATININE 1.35 mg/dL (0.55-1.30)
[2023-04-24 03:34] LABS: TOTAL BILIRUBIN 0.2 mg/dL (0.0-1.0)
[2023-04-24] MEDS: LEVOTHYROXINE SODIUM 0.125 MG TABLET PO SCH (06:35)
[2023-04-24 08:00] VITALS: BP_SYST 105
[2023-04-24] MEDS ORDERED: DOCUSATE SODIUM 100 MG CAPSULE PO ONE (08:45)
[2023-04-24] MEDS: ASPIRIN 81 MG TABLET(ECOTRIN) PO SCH (09:02)
[2023-04-24] MEDS: MILK OF MAGNESIA 30 ML UDC PO SCH (09:02)
[2023-04-24] MEDS: PANTOPRAZOLE SODIUM 40 MG TAB PO SCH (09:02)
[2023-04-24] MEDS: Effexor 37.5 MG TAB PO SCH ×2 (09:02→21:00)
[2023-04-24] MEDS: CHOLECALCIFEROL (VITAMIN D3) 2,000 UNIT TABLET PO SCH (09:03)
[2023-04-24] MEDS: MULTIVITAMINS TAB 1 TABLET PO SCH (09:03)
[2023-04-24] MEDS: METOPROLOL TARTRATE 25 MG TABLET PO SCH ×2 (09:03→21:01)
[2023-04-24 11:19] VITALS: BP_SYST 133
[2023-04-24 16:19] VITALS: BP_SYST 144
[2023-04-24 20:00] VITALS: BP_SYST 152
[2023-04-24] MEDS: DOCUSATE SODIUM 100 MG CAPSULE PO SCH (21:00)
[2023-04-24] MEDS: ATORVASTATIN 20 MG TABLET PO SCH (21:00)
[2023-04-24] MEDS: CEFEPIME 1 GM in D5W 50 ML IV SCH (21:01)
[2023-04-24] MEDS: ENOXAPARIN SODIUM 40 MG/0.4 ML SYRINGE SUBCUT SCH (21:01)
[2023-04-25 00:47] VITALS: BP_SYST 146
[2023-04-25 05:47] LABS: BASOPHILS # (AUTO) 0.1 K/uL (0.0-0.2); BASOPHILS % (AUTO) 1.2 % (0.0-2.0); EOSINOPHILS # (AUTO) 0.3 K/uL (0.0-0.4); EOSINOPHILS % (AUTO) 6.7 % (0.0-4.0); HEMATOCRIT 35.1 % (36-48); HEMOGLOBIN 11.8 g/dL (12.0-16.0); LYMPHOCYTES # (AUTO) 1.2 K/uL (1.0-5.5); LYMPHOCYTES % (AUTO) 22.9 % (20.5-51.5); MEAN CORPUSCULAR HEMOGLOBIN 30 pg (27-31); MEAN CORPUSCULAR HGB CONC 34 % (32-36); MEAN CORPUSCULAR VOLUME 89 fL (79.0-98.0); MONOCYTES # (AUTO) 0.5 K/uL (0.0-1.0); MONOCYTES % (AUTO) 8.8 % (1.7-9.3); NEUTROPHILS # (AUTO) 3.2 K/uL (1.8-7.7); NEUTROPHILS % (AUTO) 60.4 % (40.0-70.0); PLATELET COUNT (AUTO) 264 K/uL (130-430); RED BLOOD CELL COUNT(AUTO) 3.95 MIL/uL (4.2-6.2); RED CELL DISTRIBUTION WIDTH 14.7 % (9.0-15.0); WHITE BLOOD COUNT (AUTO) 5.3 K/uL (4.8-10.8)
[2023-04-25 06:24] LABS: CALCIUM 8.6 mg/dL (8.4-11.0); THYROID STIMULATING HORMONE 5.48 uIu/mL (0.34-4.82); TOTAL BILIRUBIN 0.3 mg/dL (0.0-1.0)
[2023-04-25] MEDS: KCL 20 mEq in NS 1000 mL 1,000 ML IV SCH ×2 (06:30→18:10)
[2023-04-25] MEDS: LEVOTHYROXINE SODIUM 0.125 MG TABLET PO SCH (06:30)
[2023-04-25 08:00] VITALS: BP_SYST 116
[2023-04-25] MEDS: Effexor 37.5 MG TAB PO SCH ×2 (09:00→21:02)
[2023-04-25] MEDS: MULTIVITAMINS TAB 1 TABLET PO SCH (10:15)
[2023-04-25] MEDS: CHOLECALCIFEROL (VITAMIN D3) 2,000 UNIT TABLET PO SCH (10:15)
[2023-04-25] MEDS: MILK OF MAGNESIA 30 ML UDC PO SCH (10:15)
[2023-04-25] MEDS: METOPROLOL TARTRATE 25 MG TABLET PO SCH ×2 (10:16→20:59)
[2023-04-25] MEDS: PANTOPRAZOLE SODIUM 40 MG TAB PO SCH (10:16)
[2023-04-25] MEDS: ASPIRIN 81 MG TABLET(ECOTRIN) PO SCH (10:16)
[2023-04-25] MEDS: DOCUSATE SODIUM 100 MG CAPSULE PO SCH ×2 (10:16→20:58)
[2023-04-25 11:31] VITALS: BP_SYST 124
[2023-04-25 15:05] VITALS: BP_SYST 119
[2023-04-25] MEDS ORDERED: ALPRAZolam 0.25 MG TABLET PO PRN (18:00)
[2023-04-25 20:00] VITALS: BP_SYST 134
[2023-04-25] MEDS: ATORVASTATIN 20 MG TABLET PO SCH (20:58)
[2023-04-25] MEDS: CEFEPIME 1 GM in D5W 50 ML IV SCH (21:03)
[2023-04-25] MEDS: ENOXAPARIN SODIUM 40 MG/0.4 ML SYRINGE SUBCUT SCH (21:03)
[2023-04-26 02:45] VITALS: BP_SYST 125
[2023-04-26] MEDS: LEVOTHYROXINE SODIUM 0.125 MG TABLET PO SCH (06:24)
[2023-04-26] MEDS: KCL 20 mEq in NS 1000 mL 1,000 ML IV SCH ×3 (06:25→18:24)
[2023-04-26 08:18] VITALS: BP_SYST 132
[2023-04-26] MEDS: MULTIVITAMINS TAB 1 TABLET PO SCH (08:34)
[2023-04-26] MEDS: PANTOPRAZOLE SODIUM 40 MG TAB PO SCH (08:34)
[2023-04-26] MEDS: METOPROLOL TARTRATE 25 MG TABLET PO SCH ×2 (08:34→20:48)
[2023-04-26] MEDS: MILK OF MAGNESIA 30 ML UDC PO SCH (08:34)
[2023-04-26] MEDS: CHOLECALCIFEROL (VITAMIN D3) 2,000 UNIT TABLET PO SCH (08:35)
[2023-04-26] MEDS: Effexor 37.5 MG TAB PO SCH ×2 (08:35→20:46)
[2023-04-26] MEDS: DOCUSATE SODIUM 100 MG CAPSULE PO SCH ×2 (08:35→20:46)
[2023-04-26] MEDS: ASPIRIN 81 MG TABLET(ECOTRIN) PO SCH (08:36)
[2023-04-26 12:44] VITALS: BP_SYST 128
[2023-04-26 16:31] VITALS: BP_SYST 130
[2023-04-26 20:35] VITALS: BP_SYST 154
[2023-04-26] MEDS: ATORVASTATIN 20 MG TABLET PO SCH (20:46)
[2023-04-26] MEDS: CEFEPIME 1 GM in D5W 50 ML IV SCH (20:47)
[2023-04-26] MEDS: ENOXAPARIN SODIUM 40 MG/0.4 ML SYRINGE SUBCUT SCH (20:47)
[2023-04-27 00:35] VITALS: BP_SYST 150
[2023-04-27] MEDS: LEVOTHYROXINE SODIUM 0.125 MG TABLET PO SCH (06:24)
[2023-04-27 07:55] VITALS: BP_SYST 141
[2023-04-27] MEDS: KCL 20 mEq in NS 1000 mL 1,000 ML IV SCH (08:30)
[2023-04-27] MEDS: CHOLECALCIFEROL (VITAMIN D3) 2,000 UNIT TABLET PO SCH (08:48)
[2023-04-27] MEDS: ASPIRIN 81 MG TABLET(ECOTRIN) PO SCH (08:48)
[2023-04-27] MEDS: Effexor 37.5 MG TAB PO SCH (08:48)
[2023-04-27] MEDS: DOCUSATE SODIUM 100 MG CAPSULE PO SCH (08:48)
[2023-04-27] MEDS: METOPROLOL TARTRATE 25 MG TABLET PO SCH (08:48)
[2023-04-27] MEDS: PANTOPRAZOLE SODIUM 40 MG TAB PO SCH (08:48)
[2023-04-27] MEDS: MULTIVITAMINS TAB 1 TABLET PO SCH (08:49)
[2023-04-27] MEDS: MILK OF MAGNESIA 30 ML UDC PO SCH (08:49)
[2023-04-27 11:25] VITALS: BP_SYST 120
[2023-04-27] MEDS ORDERED: SULF1TAB48 PO (12:03)
[2023-04-27 12:15] VITALS: BP_SYST 120
== END 2023-04-27 12:50 | disposition home health service (06) | DRG 690 ==
LOC: SED 11:14 → STU 13:52 → SMU 04-27 09:00
PROVIDERS: ADMIT Family Medicine; ATTEND Family Medicine
DX: N39.0 Urinary tract infection, site not specified (principal); E87.1 Hypo-osmolality and hyponatremia; I24.8 Other forms of acute ischemic heart disease; N17.9 Acute kidney failure, unspecified; G93.49 Other encephalopathy; E86.0 Dehydration; I25.10 Atherosclerotic heart disease of native coronary artery without angina pectoris; E78.5 Hyperlipidemia, unspecified; E03.9 Hypothyroidism, unspecified; K59.09 Other constipation; I10 Essential (primary) hypertension; F29 Unspecified psychosis not due to a substance or known physiological condition; F41.9 Anxiety disorder, unspecified; Z86.73 Personal history of transient ischemic attack (TIA), and cerebral infarction without residual deficits; Z86.74 Personal history of sudden cardiac arrest; Z90.49 Acquired absence of other specified parts of digestive tract; Z95.0 Presence of cardiac pacemaker
CPT/HCPCS: 36415; 71045; 80053; 80307; 81000; 83735; 83880; 84443; 84484; 85025; 85379; 85610-TC; 85730-TC; 87081; 87086; 93005; 93306; 96374; 96375; 97110-GP; 97116-GP; 97530-GP; 99291; G0378; J0360; J0692; J1200; J1630; J1650; J2270; J2405; J3480; J7060; Q0163

== ENCOUNTER 2023-05-03 07:20 | Inpatient (IN) | payer OTHER, MEDICAID ==
[~2023-05-03] VITALS: Ht 157.5 cm; Wt 54.0 kg
[~2023-05-03 07:20] MED LIST changes: +DOCU-156 PO; +LEVO125T8 PO; +PANT40TA45 PO; +SULF1TAB48 PO
--- NOTE | 2023-05-03 07:25 | NUR ---
RECEIVED PT FROM VIDA BANERJEE. PT MIGUEL SORTOS FOR C/O GENERALIZED WEAKNESS AND ALOC. EMT STATES PT IS BACK TO HER BASELINE ORIENTATION. PT IS AAOX3. SLOW TO SPEAK, LETHARGIC. PT INCONTINENT AND WEARING A DIAPER, SKIN CDI. PT BEDBOUND AT THIS TIME. DENIES PAIN. SIDERAILS UP X2.
[2023-05-03 07:28] VITALS: BP_SYST 163
--- NOTE | 2023-05-03 07:33 | NUR ---
DR. SEGURA AT BEDSIDE TO ASSESS PT.
--- NOTE | 2023-05-03 07:40 | NUR ---
BS 126.
--- NOTE | 2023-05-03 08:15 | NUR ---
EKG OBTAINED AND GIVEN TO DR. SEGURA. IV CATH 22G PLACED TO RFA, FLUSHED WITH GOOD BLOOD RETURN. DIRECTOR PUBLIC OBTAINED BLOOD AND SAMPLES TAKEN TO LAB. PT INCONTINENT, STRAIGHT CATH USED TO OBTAIN URINE, URINE SAMPLE TAKEN TO LAB. PT TAKEN FOR CT SCAN AT THIS TIME.
[2023-05-03 08:26] LABS: BASOPHILS % (AUTO) 0.3 % (0.0-2.0); EOSINOPHILS # (AUTO) 0.1 K/uL (0.0-0.4); EOSINOPHILS % (AUTO) 0.9 % (0.0-4.0); HEMATOCRIT 40.6 % (36-48); HEMOGLOBIN 13.8 g/dL (12.0-16.0); LYMPHOCYTES # (AUTO) 0.7 K/uL (1.0-5.5); LYMPHOCYTES % (AUTO) 7.1 % (20.5-51.5); MEAN CORPUSCULAR HEMOGLOBIN 30 pg (27-31); MEAN CORPUSCULAR HGB CONC 34 % (32-36); MEAN CORPUSCULAR VOLUME 88 fL (79.0-98.0); MONOCYTES # (AUTO) 0.4 K/uL (0.0-1.0); MONOCYTES % (AUTO) 4.1 % (1.7-9.3); NEUTROPHILS # (AUTO) 9.2 K/uL (1.8-7.7); NEUTROPHILS % (AUTO) 87.6 % (40.0-70.0); PLATELET COUNT (AUTO) 257 K/uL (130-430); RED BLOOD CELL COUNT(AUTO) 4.61 MIL/uL (4.2-6.2); RED CELL DISTRIBUTION WIDTH 14.8 % (9.0-15.0); WHITE BLOOD COUNT (AUTO) 10.5 K/uL (4.8-10.8)
[2023-05-03 08:50] LABS: ALANINE AMINOTRANSFERASE 98 U/L (12-78); ALBUMIN 3.9 g/dL (3.4-4.8); ASPARTATE AMINOTRANSFERASE 42 U/L (10-37); CALCIUM 9.1 mg/dL (8.4-11.0); CREATININE 1.01 mg/dL (0.55-1.30); GFR AFRICAN AMERICAN 73 mL/min (>90); GLUCOSE 112 mg/dL (70-99); TOTAL BILIRUBIN 0.6 mg/dL (0.0-1.0); UREA NITROGEN, BLOOD 14 mg/dL (8-21)
[2023-05-03 08:54] LABS: PROTHROMBIN TIME 10.2 SECS (9.5-12.5)
[2023-05-03 09:08] LABS: ACETAMINOPHEN 30 ug/mL (1-30)
[2023-05-03 09:09] LABS: ALCOHOL, BLOOD < 3 mg/dL (<10); C-REACTIVE PROTEIN QUANT < 0.2 mg/dL (0-0.5); CHLORIDE 82 mmol/L (98-107)
[2023-05-03 09:11] LABS: ANION GAP 7 (5-15)
--- NOTE | 2023-05-03 09:14 | NUR ---
REPORTED CRITICAL LAB TO DR. SEGURA, NNOS, QI=[id number].
[2023-05-03 09:20] LABS: BILIRUBIN,URINE NEGATIVE (NEGATIVE); CLARITY/URINE TURBID (CLEAR); COLOR,URINE YELLOW (YELLOW); GLUCOSE,URINE NEGATIVE (NEGATIVE); KETONES,URINE NEGATIVE (NEGATIVE); LEUKOCYTE ESTERASE ,URINE NEGATIVE (NEGATIVE); NITRITE, URINE NEGATIVE (NEGATIVE); PROTEIN URINE 2+ (NEGATIVE); UROBILINOGEN,URINE 0.2 (0.2-1.0)
[2023-05-03 09:23] LABS: BLOOD, URINE TRACE (NEGATIVE)
--- NOTE | 2023-05-03 09:25 | NUR ---
Josue monte in [facility] - 05/03/23 at 0914 by [id number] URINE OBTAINED AND TEST PENDING.
[2023-05-03] MEDS ORDERED: NACL 0.9% 1,000 ML IV ONE ×2 (09:30→10:00)
--- NOTE | 2023-05-03 09:31 | NUR ---
NS 1000ML BOLUS INITIATED.
[2023-05-03 09:37] LABS: BACTERIA,URINE FEW /HPF (None Seen); RBC,URINE 0-3 /HPF (0-3); URINE AMORPHOUS PHOSPHATES 3+ /HPF (None Seen); WBC,URINE 0-3 /HPF (0-3)
[2023-05-03 09:40] LABS: BARBITURATE, URINE NEGATIVE (NEG <=200); BENZODIAZEPINE, URINE NEGATIVE (NEG <=150); CANNABINOID, URINE NEGATIVE (NEG <=50); COCAINE, URINE NEGATIVE (NEG <=150); METHAMPHETAMINES SCREEN,URINE NEGATIVE (NEG <=500); OPIATE, URINE NEGATIVE (NEG <=100); PHENCYCLIDINE SCREEN,URINE NEGATIVE (NEG <=25); URINE AMPHETAMINE NEGATIVE (NEG <=500); URINE METHADONE NEGATIVE (NEG <=200)
[2023-05-03 09:41] LABS: UR TRICYCLIC ANTIDEPRESSANTS NEGATIVE (NEG <=300); URINE OXYCODONE SCREEN NEGATIVE (NEG <=100); URINE PROPOXYPHENE SCREEN NEGATIVE (NEG <=300)
--- NOTE | 2023-05-03 09:50 | NUR ---
REMedication reconciliation completed with information provided by VIDA NARANJO. Any prior medication reconciliation on file was reviewed and corrected.
--- NOTE | 2023-05-03 09:56 | NUR ---
Admit bed requested Patient will be admitted to care of . Admitted to TELEMETRY unit. Diagnosis HYPONATREMIA Inpatient (Yes or No) YES Observation (Yes or No) NO Orientation concerns or request close to nursing station (Yes or No) NO Covid Status N/A On vent or bipap NONE Isolation requirements NONE Needs a sitter NO From Home (Yes or if No enter name of facility) YES Requires Dialysis (Yes or No) NO Med Rec Completed (Yes of No) YES
[2023-05-03 10:10] LABS: FREE T4 (FREE THYROXINE) 1.2 ng/dL (0.6-1.6); THYROID STIMULATING HORMONE 4.84 uIu/mL (0.34-4.82)
[2023-05-03] MEDS ORDERED: NACL 0.9% 1,000 ML IV SCH (10:30)
--- NOTE | 2023-05-03 10:51 | NUR ---
NS AT 75ML/HOUR INITIATED.
[2023-05-03 10:52] LABS: ACETONE, SERUM NEGATIVE (NEGATIVE)
[2023-05-03 11:10] VITALS: BP_SYST 160
--- NOTE | 2023-05-03 11:10 | NUR ---
ADMITTED. PATIENT ADMITTED TO FLOOR VIA GURNEY.PATIENT HAS AT BEDSIDE HE WAS ABLE TO GO THROUGH ADMISSION QUESTIONS WITH ME. PATIENT IS CONFUSED EDUCATED TO USE CALL LIGHT FOR ASSISTANCE CALL LIGHT IS WITH HER. NO OTHER NEEDS AT THIS TIME.
--- NOTE | 2023-05-03 11:28 | NUR ---
Nutrition F/U RD reviewed pts current EMR including diet hx, physician notes, nursing notes, pertinent labs/meds/procedures, care trends and care activity. Subjective Information RD rounded to pt room and pt was resting. RD tried to address her but she did not seem to understand. RD s/w pts RNRia. She reports that pt is now not eating or drinking anything. RN unsure what the plans moving forward will be: GT or palliative care. RD said she would provide a recommendation, in case they decide EN. RD suggested appetite stimulant but RN said pt will not even drinking currently, so that is not likely. Per EMR review: BP trending high (141/74); pt on room air; abd soft, non-distended w/ active bowel sounds; LABS: K+ 2.8*L, BUN 63 H, Cre 3.36 H, BG 131 H, Trop 1341 *H. Pt is not meeting nutritional needs at this time. Current Diet Order/Nutrition Support Regular, Ensure HP TID, Ghanshyam BID x 3 days % PO intake Negligible avg of 9% x 9 meal records (includes 5 refused meals) Last BM 05/03 x 1 Estimated Energy Expenditure (kcals/day) 2993-7257 (25-30 kcal/kg CBW d/t GERIAT maintenance) Estimated Protein Required (g/day) 43-65 (0.8-1.2 gm/kg CBW d/t GERIAT maintenance, ARF) Estimated Fluid Required (l/day) Per physician d/t ARF Problem/Etiology/Signs/Symptoms Inadequate nutritional intakes R/T GERIAT maintenance AEB negligible PO intake records accompanied by sister report of pt's poor appetite. *ongoing Expected Outcomes/Goals - Monitor appetite and PO intakes w/ goal of pt meeting >50% of estimated nutritional needs, labs trending WNL, normal GI function, and skin integrity/wt maintenance Dietitian Recommendations * Continue Regular diet, Ensure TID, Ghanshyam BID (supplements yield additional 1230 kcal/day, 65 gm protein/day) * Encourage good PO intakes and 1:1 feeding assistance * Consider alternate nutrition, if intakes remain negligible: Nepro @ 35mL/hr (goal), Ghanshyam BID via GT/NGT Provides (w/ Ghanshyam): 1692 kcal, 73 g PRO, 611 mL free water Meets (w/ Ghanshyam):104% of upper est kcal, 112% if upper est PRO needs * Consider appetite stimulant Follow up *High risk: f/u in 2-[address] Addendum: 05/03/23 at [address] Wrong patient. Please disregard entire note LISSETH GUADARRAMA RD
--- NOTE | 2023-05-03 11:30 | NUR ---
Dietitian Recommendations * Continue Regular diet, Ensure TID, Ghanshyam BID (supplements yield additional 1230 kcal/day, 65 gm protein/day) * Encourage good PO intakes and 1:1 feeding assistance * Consider alternate nutrition, if intakes remain negligible: Nepro @ 35mL/hr (goal), Ghanshyam BID via GT/NGT Provides (w/ Ghanshyam): 1692 kcal, 73 g PRO, 611 mL free water Meets (w/ Ghanshyam):104% of upper est kcal, 112% if upper est PRO needs * Consider appetite stimulant LISSETH GUADARRAMA, KAYLI Please refer to Nutrition F/U for further details. Thanks! Addendum: 05/03/23 at [address] Wrong patient. Please disregard entire note LISSETH GUADARRAMA, KAYLI
--- NOTE | 2023-05-03 11:35 | NUR ---
APatient will be admitted to care of DR. PALM. Admitted to TELEMETRY unit. Will go to room 102B. Belongings list completed. Complete and up to date summary report printed. SBAR report to be given at bedside with opportunity for questions.
[2023-05-03] MEDS ORDERED: hydrALAZINE HCL 20 MG/ML VIAL IVP PRN (12:30)
[2023-05-03] MEDS ORDERED: KETOROLAC TROMETHAMINE 15 MG VIAL IVP PRN (12:30)
[2023-05-03] MEDS ORDERED: ONDANSETRON HCL 4 MG/2 ML VIAL IVP PRN (12:30)
[2023-05-03] MEDS: ALPRAZolam 0.25 MG TABLET PO PRN (14:41)
--- NOTE | 2023-05-03 14:46 | NUR ---
MEDICATION PATIENT COMPLAINS OVER ANXIETY MEDICATED PER ORDER.PATIENT IS AWAKE AND ALERT SITTING UP IN BED.STATES HER NAUSEA IS ALOT BETTER.DR. PALM AT NURSES STATION. EDUCATED ELECTRICAL AND INSTRUMENTATION MECHANIC LIGHT IS WITH HER. NO OTHER NEEDS AT THIS TIME.
[2023-05-03] MEDS: KCL 20 mEq in NS 1000 mL 1,000 ML IV SCH ×2 (15:30→23:06)
--- NOTE | 2023-05-03 15:30 | NUR ---
AT NURSES STATION. STATES FOR PATIENT TO FINISH NORMAL SLAINE BAG THEN START ON NEW IV FLUID.
[2023-05-03 16:00] VITALS: BP_SYST 149
[2023-05-03] MEDS: ACETAMINOPHEN 325 MG TABLET PO PRN (18:04)
--- NOTE | 2023-05-03 18:27 | NUR ---
RN CLOSING NOTE INCONTINENCE CARE PROVIDED TO PATIENT. PATIENT COMPLAINS OF HEADACHE MEDICATED PER ORDER. PATIENT SATES SHE DOES NOT WANT TO EAT WANTS TO JUST LAY DOWN.PATIENT DOES NOT KNOW WHERE SHE IS REORIENTED BUT IS VERY CONFUSED. CALL LIGHT IS WITH HER EDUCATED TO USE FOR ASSISTANCE. NO OTHER NEEDS AT THIS TIME. .
[2023-05-03 19:40] VITALS: BP_SYST 152
--- NOTE | 2023-05-03 19:40 | NUR ---
PM ASSESSMENT; -Pt is a/ox1 name, resting in bed comfortably. No s/s any pain, sob, any acute distress noted. Unable to discuss poc d/t cognitive limitation, no family is at bedside this time. Bed alarmed,side rails x3,call light w/in reach. All safety measures in place. Cont to monitor pt.
[2023-05-03] MEDS: FAMOTIDINE PF 20 MG/2 ML VIAL IVP SCH (23:03)
[2023-05-03] MEDS: Effexor 37.5 MG TAB PO SCH (23:03)
[2023-05-03] MEDS: ENOXAPARIN SODIUM 40 MG/0.4 ML SYRINGE SUBCUT SCH (23:04)
[2023-05-03] MEDS: metroNIDAZOLE 500 mg/NS 100 ML IV SCH (23:04)
[2023-05-03] MEDS: METOPROLOL TARTRATE 25 MG TABLET PO SCH (23:04)
[2023-05-04 00:06] VITALS: BP_SYST 135
[2023-05-04] MEDS: ACETAMINOPHEN 325 MG TABLET PO PRN (00:15)
[2023-05-04] MEDS: ALPRAZolam 0.25 MG TABLET PO PRN ×2 (00:15→20:58)
--- NOTE | 2023-05-04 00:36 | NUR ---
ROUNDS;INCONTINENT OF URINE -Pt is resting in bed. pt denies any pain,sob,or any acute distress. Pt is incontinent of urine, provided perineal care and now pt is cleaned and dry. Bed alarmed,side rails x3,call light w/in reach. cont to monitor pt.
--- NOTE | 2023-05-04 04:12 | NUR ---
ROUNDS;INCONTINENT OF URINE -Pt awakes, resting in bed. No s/s any pain,sob,or any acute distress noted. Pt is incontinent of urine, provided perineal care and now pt is cleaned and dry. Bed alarmed,side rails x3,call light w/in reach. cont to monitor pt.
[2023-05-04] MEDS: metroNIDAZOLE 500 mg/NS 100 ML IV SCH ×3 (05:05→21:09)
[2023-05-04] MEDS: LEVOTHYROXINE SODIUM 0.025 MG TABLET PO SCH (06:25)
--- NOTE | 2023-05-04 06:38 | NUR ---
CLOSING NOTES; -Pt is resting in bed comfortably. No s/s any pain,sob,or any acute distress noted. IV site patent, no s/s any infiltration noted. Pt's condition stable. All safety measures in place. Bed alarmed,side rail x3,Call light within reach. will endorse to next nurse to continuity of care.
[2023-05-04 07:19] LABS: BASOPHILS % (AUTO) 0.4 % (0.0-2.0); EOSINOPHILS # (AUTO) 0.1 K/uL (0.0-0.4); EOSINOPHILS % (AUTO) 1.4 % (0.0-4.0); HEMOGLOBIN 12.5 g/dL (12.0-16.0); LYMPHOCYTES # (AUTO) 0.9 K/uL (1.0-5.5); LYMPHOCYTES % (AUTO) 17.4 % (20.5-51.5); MEAN CORPUSCULAR HEMOGLOBIN 30 pg (27-31); MEAN CORPUSCULAR HGB CONC 35 % (32-36); MEAN CORPUSCULAR VOLUME 87 fL (79.0-98.0); MONOCYTES # (AUTO) 0.4 K/uL (0.0-1.0); MONOCYTES % (AUTO) 8.5 % (1.7-9.3); NEUTROPHILS # (AUTO) 3.7 K/uL (1.8-7.7); NEUTROPHILS % (AUTO) 72.3 % (40.0-70.0); PLATELET COUNT (AUTO) 242 K/uL (130-430); RED BLOOD CELL COUNT(AUTO) 4.12 MIL/uL (4.2-6.2); RED CELL DISTRIBUTION WIDTH 14.4 % (9.0-15.0); WHITE BLOOD COUNT (AUTO) 5.1 K/uL (4.8-10.8)
--- NOTE | 2023-05-04 07:30 | NUR ---
RN OPENING NOTE REPORT WAS ENDORSED BY NIGHT NURSE. PATIENT IS AWAKE AND ALERT WITH SOME CONFUSION. PATIENT REPEATS THE SAME THINGS DOES NOT KNOW WHERE SHE IS ATTEMPTED TO REORIENT BUT STILL CONFUSED. EDUCATED SCENIC ARTIST LIGHT FOR ASSISTANCE. CALL LIGHT IS WITH HER. NO OTHER NEEDS AT THIS TIME
[2023-05-04 07:31] LABS: CALCIUM 8.7 mg/dL (8.4-11.0); CREATININE 1.01 mg/dL (0.55-1.30); PHOSPHORUS 3.8 mg/dL (2.7-4.5)
[2023-05-04 08:06] VITALS: BP_SYST 146
[2023-05-04] MEDS: METOPROLOL TARTRATE 25 MG TABLET PO SCH ×2 (08:59→20:59)
[2023-05-04] MEDS: MULTIVITAMINS TAB 1 TABLET PO SCH (09:00)
[2023-05-04] MEDS: TAMSULOSIN HCL 0.4 MG CAP PO SCH (09:00)
[2023-05-04] MEDS: FAMOTIDINE PF 20 MG/2 ML VIAL IVP SCH ×2 (09:01→20:59)
[2023-05-04] MEDS: Effexor 37.5 MG TAB PO SCH ×2 (09:10→21:06)
--- NOTE | 2023-05-04 10:14 | NUR ---
opening pt is calm,cooperitive, alert oriented to person moderate confusion, but likes to talk. general weakness on bed rest, no c/o pain, informed pt not to get out of bed, call light with in reach,
--- NOTE | 2023-05-04 10:23 | NUR ---
medication pt is awake alert, routine meds given, pt swallows well with no issues, call light with in reach, pt has no needs at this time.
[2023-05-04] MEDS: KCL 20 mEq in NS 1000 mL 1,000 ML IV SCH ×2 (11:48→21:08)
--- NOTE | 2023-05-04 11:55 | NUR ---
IV FLUID PATIENT IS AWAKE AND ALERT LAYING IN BED. PATIENT IS VERY FORGETFUL REPEATING THINGS. educated cotton stomper light for assistance.call light is with her.
[2023-05-04 11:58] VITALS: BP_SYST 141
--- NOTE | 2023-05-04 14:21 | NUR ---
medication Patient scheduled medication given per order. patient is awake and alert with confusion not making sense.reoriented but is still confused.educated online content editor light for assistance. call light is with her.
--- NOTE | 2023-05-04 16:30 | NUR ---
room change pt moved to different room, no s/s of distress. call light within reach no c/o pain
[2023-05-04 16:33] VITALS: BP_SYST 145
--- NOTE | 2023-05-04 18:14 | NUR ---
rounds pt incontient of urine, pt cleaned, now bedding , new gown, pt states she is cofortable, pt has call light with in reach
--- NOTE | 2023-05-04 18:54 | NUR ---
closing note pt comfortable in bed, no c/o pain, oriented to person but has mild confusion and repeats herself often. call light is with in reach, pt instructed not to get out of bed, pt has general weakness but can move all limbs.
[2023-05-04 19:00] VITALS: BP_SYST 107
[2023-05-04 20:00] VITALS: BP_SYST 107
--- NOTE | 2023-05-04 20:00 | NUR ---
pt.assessed.v/s assessed values wnl.no c/o pain,nausea.note affect;restless,loc:confused.pt.re-oriented.pt.assisted w the bedpan.iv access intact;patent.pt.repositioned.call light/telephone placed w/in access of the pt.
[2023-05-04] MEDS: ENOXAPARIN SODIUM 40 MG/0.4 ML SYRINGE SUBCUT SCH (21:00)
--- NOTE | 2023-05-04 21:00 | NUR ---
pt.presents affect;agitation,yelling,combative.xanax:0.25mg administered.to assess the efficacy of the medication per protocol.
--- NOTE | 2023-05-04 21:42 | NUR ---
CALLED BACK: DR PALM CALLED BACK, NOTIFIED MD THAT PT IS VERY CONFUSED, SCREAMING , YELLING AND SAYING THAT WE ARE "KILLING HER". ALSO INFORMED MD THAT OTHER PTS IN THE HOSPITAL ARE COMPLAINING ABOUT THE SCREAMING . MD ORDERED HALDOL 5 MG IM X 1 NOW . READ BACK ORDER AND VERIFIED AGAIN .
[2023-05-04] MEDS ORDERED: HALOPERIDOL LACTATE 5 MG/ML VIAL IM ONE (21:45)
--- NOTE | 2023-05-04 22:00 | NUR ---
pt 's symptoms:aggressive,yelling,combative persisted.haldol:5mg im administered.to assess the efficacy of the medication per protocol.
--- NOTE | 2023-05-04 23:00 | NUR ---
pt.assessed.pt.presents decrease in affect;restlessness,agitation.pt.resting.call light/telephone w/in access of the pt.
--- NOTE | 2023-05-05 | NUR ---
pt.assessed.v/s assessed values wnl.pt's affect;quiescent.per flacc pain mgx pt.absent facial grimaces/body posturing. pt.assessed for cleanliness pt.repositioned.call light/telephone w/in access of the pt.
[2023-05-05 00:21] VITALS: BP_SYST 172
--- NOTE | 2023-05-05 03:47 | NUR ---
HIGH ALERT NOTE: Called Dr. issa back at identified within the medical roster to verify physician authenticity.apprised the xanax o.25mg administered. waited 30minutes to assess the efficacy of the xanax.xanax did not mitigated pt's symptoms;agitaion,yelling,combative. ordered haldol;5mg im x1.
--- NOTE | 2023-05-05 04:00 | NUR ---
pt.assessed.pt.quiescent;somnolent.per flacc pain mgx pt.absent facial grimaces/body posturing.pt.assessed for cleanliness pt.repositioned.call light/telephone placed w/in access of the pt.
[2023-05-05 05:45] LABS: BASOPHILS % (AUTO) 0.4 % (0.0-2.0); EOSINOPHILS # (AUTO) 0.1 K/uL (0.0-0.4); EOSINOPHILS % (AUTO) 1.1 % (0.0-4.0); HEMATOCRIT 35.9 % (36-48); HEMOGLOBIN 12.1 g/dL (12.0-16.0); LYMPHOCYTES % (AUTO) 12.3 % (20.5-51.5); MEAN CORPUSCULAR HEMOGLOBIN 30 pg (27-31); MEAN CORPUSCULAR HGB CONC 34 % (32-36); MEAN CORPUSCULAR VOLUME 87 fL (79.0-98.0); MONOCYTES # (AUTO) 0.6 K/uL (0.0-1.0); MONOCYTES % (AUTO) 7.3 % (1.7-9.3); NEUTROPHILS # (AUTO) 6.4 K/uL (1.8-7.7); NEUTROPHILS % (AUTO) 78.9 % (40.0-70.0); PLATELET COUNT (AUTO) 232 K/uL (130-430); RED CELL DISTRIBUTION WIDTH 14.9 % (9.0-15.0); WHITE BLOOD COUNT (AUTO) 8.1 K/uL (4.8-10.8)
[2023-05-05 06:14] LABS: CALCIUM 9.2 mg/dL (8.4-11.0); CREATININE 1.02 mg/dL (0.55-1.30)
[2023-05-05] MEDS: metroNIDAZOLE 500 mg/NS 100 ML IV SCH ×3 (06:14→21:34)
[2023-05-05] MEDS: LEVOTHYROXINE SODIUM 0.025 MG TABLET PO SCH (06:15)
--- NOTE | 2023-05-05 06:30 | NUR ---
pt.assessed.pt.quiescent.iv access re-established yana location:rt.forearm:#[id number].iv fluids re-connected.flagyl abx ivpb 0600a dose administered.synthroid 0700a dose administered.no c/o pain,nausea.pt.repositioned.call light/telephone placed w/in access of the pt.
--- NOTE | 2023-05-05 07:35 | NUR ---
OPENING NOTES ALERT TO NAME AND PLACE. NO SIGN OF SHORTNESS OF BREATH.DENIES ANY PAIN. IV INFSUING WELL. SAFETY CHECKS DONE. CALL LIGHT WITHIN REACH.
[2023-05-05 08:10] VITALS: BP_SYST 159
--- NOTE | 2023-05-05 09:45 | NUR ---
MED PASS WAS ABLE TO TAKE PILLS WHOLE. PATIENT REMOVED HER CARDING SUPERVISOR. SHE SAID SHE DOES NOT WANT IT BECAUSE IT MIGHT 'BLOW OFF'. EXPLAINED NEED FOR IT THEN SHE COOPERATED.
[2023-05-05] MEDS: Effexor 37.5 MG TAB PO SCH ×2 (09:50→21:38)
[2023-05-05] MEDS: MULTIVITAMINS TAB 1 TABLET PO SCH (09:51)
[2023-05-05] MEDS: FAMOTIDINE PF 20 MG/2 ML VIAL IVP SCH ×2 (09:51→21:32)
[2023-05-05] MEDS: TAMSULOSIN HCL 0.4 MG CAP PO SCH (09:51)
[2023-05-05] MEDS: METOPROLOL TARTRATE 25 MG TABLET PO SCH ×2 (09:51→21:33)
--- NOTE | 2023-05-05 11:04 | NUR ---
SHLOMO reached out to Julianna KEENAN at [facility]. Julianna updated; facesheet and requested info faxed to F#[phone]
[2023-05-05 11:29] VITALS: BP_SYST 148
--- NOTE | 2023-05-05 12:30 | NUR ---
ROUNDS EATING LUNCH. NO SIGN OF DISTRESS.
[2023-05-05] MEDS: KCL 20 mEq in NS 1000 mL 1,000 ML IV SCH ×2 (13:45→17:30)
--- NOTE | 2023-05-05 15:34 | NUR ---
CM faxed DC plan for HH to Julianna at [facility] and to [facility] to resume prior existing service. Patient will DC tomorrow to follow up DUANE with PCP and OP roof designer. CM to follow up with [facility] tomorrow morning.
[2023-05-05 15:53] VITALS: BP_SYST 155
[2023-05-05 19:00] VITALS: BP_SYST 155
[2023-05-05 20:00] VITALS: BP_SYST 155
--- NOTE | 2023-05-05 20:00 | NUR ---
pt.assessed.v/s assessed values wnl.o2-sat%=98%.no c/o pain,nausea.iv access intact;patent iv fluids infusing. pt.repositioned.call light/telephone placed w/in access of the pt.
--- NOTE | 2023-05-05 21:00 | NUR ---
2100p medications administered.pt.capable to ingest the po medications w/out difficulty.no c/o pain,nausea.
[2023-05-05] MEDS: ENOXAPARIN SODIUM 40 MG/0.4 ML SYRINGE SUBCUT SCH (21:34)
--- NOTE | 2023-05-05 22:39 | NUR ---
Dietitian Recommendations *Continue on regular diet per MD Rx *Encourage good PO intakes and 1:1 feeding assistance if needed Monitor/Evaluation PO intake, GI, skin, labs Please refer to RD Assessment for details FANY GARCIA Addendum: 05/05/23 at [address] Amended: Links added.
[2023-05-06] VITALS: BP_SYST 140
--- NOTE | 2023-05-06 | NUR ---
pt.assessed.v/s assessed values wnl.no c/o pain,nausea.pt.cleaned/repositioned.iv access re-established rt.hand#[id number]. call light/telephone placed w/in access of the pt.
--- NOTE | 2023-05-06 02:00 | NUR ---
pt.assessed.pt.quiescent;somnolent.per flacc pain mgx pt.absent facial grimaces/body posturing.iv access intact;patent.pt.repositioned.call light/telephone placed w/in access of the pt.
[2023-05-06] MEDS: KCL 20 mEq in NS 1000 mL 1,000 ML IV SCH ×2 (03:30→13:30)
--- NOTE | 2023-05-06 04:00 | NUR ---
pt.assessed.pt.quiescent.per flacc pain mgx pt.absent facial grimaces/body posturing.pt.assessed for cleanliness pt.repositioned.call light/telephone placed w/in access of the pt.
[2023-05-06] MEDS: metroNIDAZOLE 500 mg/NS 100 ML IV SCH ×2 (05:13→15:23)
[2023-05-06] MEDS ORDERED: LEVOTHYROXINE SODIUM 0.15 MG TABLET PO SCH (07:00)
[2023-05-06 07:02] LABS: BASOPHILS # (AUTO) 0.1 K/uL (0.0-0.2); BASOPHILS % (AUTO) 0.7 % (0.0-2.0); EOSINOPHILS # (AUTO) 0.1 K/uL (0.0-0.4); EOSINOPHILS % (AUTO) 1.7 % (0.0-4.0); HEMATOCRIT 38.6 % (36-48); HEMOGLOBIN 13.1 g/dL (12.0-16.0); LYMPHOCYTES # (AUTO) 0.8 K/uL (1.0-5.5); LYMPHOCYTES % (AUTO) 9.9 % (20.5-51.5); MEAN CORPUSCULAR HEMOGLOBIN 30 pg (27-31); MEAN CORPUSCULAR HGB CONC 34 % (32-36); MEAN CORPUSCULAR VOLUME 89 fL (79.0-98.0); MONOCYTES # (AUTO) 0.5 K/uL (0.0-1.0); MONOCYTES % (AUTO) 6.1 % (1.7-9.3); NEUTROPHILS # (AUTO) 6.8 K/uL (1.8-7.7); NEUTROPHILS % (AUTO) 81.6 % (40.0-70.0); PLATELET COUNT (AUTO) 256 K/uL (130-430); RED BLOOD CELL COUNT(AUTO) 4.34 MIL/uL (4.2-6.2); RED CELL DISTRIBUTION WIDTH 15.4 % (9.0-15.0); WHITE BLOOD COUNT (AUTO) 8.4 K/uL (4.8-10.8)
[2023-05-06 07:59] LABS: CALCIUM 9.6 mg/dL (8.4-11.0); CREATININE 1.02 mg/dL (0.55-1.30); PHOSPHORUS 3.1 mg/dL (2.7-4.5)
[2023-05-06 08:00] VITALS: BP_SYST 157
--- NOTE | 2023-05-06 08:22 | NUR ---
opening notes: patient in bed eating breakfast. patient iv found removed on bedside table. no s/s of distress or pain reported. breathing is even and unlabored on ra 100%. all needs met at this time, safety checks made and call light within reach.
[2023-05-06] MEDS: FAMOTIDINE PF 20 MG/2 ML VIAL IVP SCH (09:00)
--- NOTE | 2023-05-06 09:09 | NUR ---
SPOKE TO AND FAXED EARLE AT [facility] TO SET [facility] HOME [facility] FOR THE PATIENT.
[2023-05-06] MEDS: METOPROLOL TARTRATE 25 MG TABLET PO SCH (11:06)
[2023-05-06] MEDS: TAMSULOSIN HCL 0.4 MG CAP PO SCH (11:07)
[2023-05-06] MEDS: MULTIVITAMINS TAB 1 TABLET PO SCH (11:07)
[2023-05-06] MEDS: Effexor 37.5 MG TAB PO SCH (11:07)
[2023-05-06 11:28] VITALS: BP_SYST 140
--- NOTE | 2023-05-06 13:06 | NUR ---
PHYSICAL THERAPY CO-SIGN The Physical Therapy Progress Notes documented by Hydraulic Press Tender have been reviewed. Reviewed/Co-Signed by: Christiano Villalobos Documentation Done by:DEVON GARCIA Addendum: 05/06/23 at 1306 by Christiano Villalobos PT Amended: Links added.
--- NOTE | 2023-05-06 13:48 | NUR ---
RESENT THE FAX TO [facility] AT 909AM RESENT IT AT 145PM. TRIED TO CALL COULDNT GET ANYONE Addendum: 05/06/23 at 1413 by Brianna Arellano DP CANCEL
--- NOTE | 2023-05-06 14:55 | NUR ---
SHLOMO spoke with Giovanni at [facility] [phone] who confirms that they will resume home health service. search planner faxed updated information to [facility] f# [phone]. SHLOMO to inform patient RN
[2023-05-06 15:13] VITALS: BP_SYST 156
[2023-05-06 17:39] VITALS: BP_SYST 144
== END 2023-05-06 19:20 | disposition home health service (06) | DRG 392 ==
LOC: SED 07:20 → STU 09:54
PROVIDERS: ADMIT Family Medicine; ATTEND Family Medicine
DX: K52.9 Noninfective gastroenteritis and colitis, unspecified (principal); G82.20 Paraplegia, unspecified; E87.1 Hypo-osmolality and hyponatremia; I25.10 Atherosclerotic heart disease of native coronary artery without angina pectoris; E03.9 Hypothyroidism, unspecified; F41.9 Anxiety disorder, unspecified; R74.01 Elevation of levels of liver transaminase levels; I10 Essential (primary) hypertension; Z74.01 Bed confinement status
CPT/HCPCS: 36415; 70450-TC; 71045; 76376; 80048; 80053; 80307; 81000; 82009; 82140; 82150; 82550; 83605; 83690; 83735; 84100; 84439; 84443; 84484; 85025; 85610-TC; 85730-TC; 86140; 87081; 93005; 96360; 97116-GP; 97530-GP; 99285; G0378; G0480; G0481; G0482; J0360; J1630; J1650; J1885; J2405; J3480; J3490

== ENCOUNTER 2023-09-16 22:17 | Inpatient (IN) | payer OTHER, MEDICAID ==
[~2023-09-16] VITALS: Ht 157.5 cm; Wt 61.9 kg
[~2023-09-16 22:17] MED LIST changes: -ACET325T53 PO; -ASPI-1393 PO; -BUSP5TAB3 PO; -CLON0.1T PO; -DIPH25CA83 PO; -DOCU-144 PO; -DOCU-156 PO; -LEVO125C2 PO; -LEVO125T8 PO; -LIP20 PO; -PANT40TA45 PO; -SULF1TAB48 PO; -VITD400 PO
[2023-09-16 22:24] VITALS: BP_SYST 145; PULSE 90; RESP 20; TEMP 97.1; O2SAT 98
[2023-09-16] MEDS ORDERED: levETIRAcetam 1,000 MG IV BAG 100 ML IV ONE (22:45)
[2023-09-16] MEDS ORDERED: NACL 0.9% 1,000 ML IV ONE (22:45)
[2023-09-16 22:58] LABS: BASOPHILS % (AUTO) 0.4 % (0.0-2.0); EOSINOPHILS # (AUTO) 0.1 K/uL (0.0-0.4); EOSINOPHILS % (AUTO) 0.7 % (0.0-4.0); HEMOGLOBIN 13.7 g/dL (12.0-16.0); LYMPHOCYTES # (AUTO) 1.2 K/uL (1.0-5.5); MEAN CORPUSCULAR HEMOGLOBIN 30 pg (27-31); MEAN CORPUSCULAR HGB CONC 34 % (32-36); MEAN CORPUSCULAR VOLUME 88 fL (79.0-98.0); MONOCYTES # (AUTO) 0.5 K/uL (0.0-1.0); MONOCYTES % (AUTO) 5.4 % (1.7-9.3); NEUTROPHILS % (AUTO) 81.5 % (40.0-70.0); PLATELET COUNT (AUTO) 297 K/uL (130-430); RED BLOOD CELL COUNT(AUTO) 4.67 MIL/uL (4.2-6.2); RED CELL DISTRIBUTION WIDTH 13.3 % (9.0-15.0); WHITE BLOOD COUNT (AUTO) 9.8 K/uL (4.8-10.8)
[2023-09-16 23:27] LABS: CALCIUM 9.5 mg/dL (8.4-11.0); CREATININE 1.01 mg/dL (0.55-1.30); POTASSIUM 3.6 mmol/L (3.5-5.1)
[2023-09-16 23:32] LABS: ALBUMIN 3.9 g/dL (3.4-4.8); TOTAL BILIRUBIN 0.8 mg/dL (0.0-1.0); TOTAL PROTEIN, SERUM 7.8 g/dL (6.4-8.3)
[2023-09-17 00:55] LABS: BILIRUBIN,URINE NEGATIVE (NEGATIVE); CLARITY/URINE CLEAR (CLEAR); COLOR,URINE YELLOW (YELLOW); GLUCOSE,URINE NEGATIVE (NEGATIVE); KETONES,URINE NEGATIVE (NEGATIVE); LEUKOCYTE ESTERASE ,URINE NEGATIVE (NEGATIVE); NITRITE, URINE NEGATIVE (NEGATIVE); PH,URINE 7.5 (5.0-8.0); PROTEIN URINE 1+ (NEGATIVE); UROBILINOGEN,URINE 0.2 (0.2-1.0)
[2023-09-17 01:08] LABS: BLOOD, URINE TRACE (NEGATIVE)
[2023-09-17 01:11] LABS: BACTERIA,URINE None Seen /HPF (None Seen); WBC,URINE 0-3 /HPF (0-3)
[2023-09-17 01:17] LABS: BARBITURATE, URINE NEGATIVE (NEG <=200); BENZODIAZEPINE, URINE NEGATIVE (NEG <=150); CANNABINOID, URINE NEGATIVE (NEG <=50); COCAINE, URINE POSITIVE (NEG <=150); METHAMPHETAMINES SCREEN,URINE NEGATIVE (NEG <=500); OPIATE, URINE NEGATIVE (NEG <=100); PHENCYCLIDINE SCREEN,URINE NEGATIVE (NEG <=25); UR TRICYCLIC ANTIDEPRESSANTS NEGATIVE (NEG <=300); URINE AMPHETAMINE NEGATIVE (NEG <=500); URINE METHADONE NEGATIVE (NEG <=200); URINE OXYCODONE SCREEN NEGATIVE (NEG <=100); URINE PROPOXYPHENE SCREEN NEGATIVE (NEG <=300)
[2023-09-17] MEDS ORDERED: NACL 0.9% 1,000 ML IV ONE (03:45)
[2023-09-17] MEDS ORDERED: LORazepam 2 MG/ML VIAL IVP PRN (04:45)
[2023-09-17] MEDS ORDERED: D5/0.45 NS 1,000 ML IV ONE (04:45)
[2023-09-17 05:32] VITALS: BP_SYST 99; PULSE 66; RESP 18; TEMP 98.2
[2023-09-17 08:08] VITALS: BP_SYST 102; PULSE 69; RESP 17; TEMP 96.9; O2SAT 99
[2023-09-17] MEDS ORDERED: ONDANSETRON HCL 4 MG/2 ML VIAL IVP PRN (10:00)
[2023-09-17] MEDS ORDERED: NALOXONE HCL 0.4 MG/ML AMP (NARCAN) IVP PRN ×2 (10:00)
[2023-09-17] MEDS ORDERED: traMADol HCL HCL 50 MG TABLET (ULTRAM) PO PRN (10:00)
[2023-09-17] MEDS ORDERED: HYDROcodone/ACETAMIN 5-325 MG TAB (NORCO/ VICODIN) PO PRN (10:00)
[2023-09-17] MEDS ORDERED: ACETAMINOPHEN 325 MG TABLET PO PRN ×2 (10:00→10:30)
[2023-09-17] MEDS ORDERED: LEVOTHYROXINE SODIUM 0.125 MG TABLET PO ONE (10:30)
[2023-09-17] MEDS ORDERED: TAMSULOSIN HCL 0.4 MG CAP PO ONE (10:30)
[2023-09-17 10:45] LABS: BASOPHILS % (AUTO) 0.6 % (0.0-2.0); EOSINOPHILS # (AUTO) 0.1 K/uL (0.0-0.4); EOSINOPHILS % (AUTO) 1.1 % (0.0-4.0); HEMATOCRIT 39.3 % (36-48); HEMOGLOBIN 12.9 g/dL (12.0-16.0); LYMPHOCYTES # (AUTO) 0.9 K/uL (1.0-5.5); LYMPHOCYTES % (AUTO) 18.5 % (20.5-51.5); MEAN CORPUSCULAR HEMOGLOBIN 29 pg (27-31); MEAN CORPUSCULAR HGB CONC 33 % (32-36); MEAN CORPUSCULAR VOLUME 88 fL (79.0-98.0); MONOCYTES # (AUTO) 0.5 K/uL (0.0-1.0); MONOCYTES % (AUTO) 10.1 % (1.7-9.3); NEUTROPHILS # (AUTO) 3.3 K/uL (1.8-7.7); NEUTROPHILS % (AUTO) 69.7 % (40.0-70.0); PLATELET COUNT (AUTO) 214 K/uL (130-430); RED BLOOD CELL COUNT(AUTO) 4.45 MIL/uL (4.2-6.2); RED CELL DISTRIBUTION WIDTH 13.1 % (9.0-15.0); WHITE BLOOD COUNT (AUTO) 4.8 K/uL (4.8-10.8)
[2023-09-17 11:00] LABS: ALBUMIN 2.9 g/dL (3.4-4.8); CALCIUM 8.8 mg/dL (8.4-11.0); CREATININE 0.93 mg/dL (0.55-1.30); POTASSIUM 3.9 mmol/L (3.5-5.1); TOTAL BILIRUBIN 0.6 mg/dL (0.0-1.0); TOTAL PROTEIN, SERUM 6.1 g/dL (6.4-8.3)
[2023-09-17 12:26] VITALS: BP_SYST 100; PULSE 65; RESP 18; TEMP 97.2; O2SAT 97
[2023-09-17 16:59] VITALS: BP_SYST 101; PULSE 72; RESP 18; TEMP 97; O2SAT 98
[2023-09-17 19:46] VITALS: BP_SYST 131; PULSE 71; RESP 18; TEMP 99; O2SAT 97
[2023-09-17] MEDS: SODIUM CHLORIDE 500 MG TABLET PO SCH (20:31)
[2023-09-17] MEDS: Effexor 37.5 MG TAB PO SCH (20:31)
[2023-09-17] MEDS: PANTOPRAZOLE SODIUM 40 MG TAB PO SCH (20:31)
[2023-09-17] MEDS: METOPROLOL TARTRATE 50 MG TABLET PO SCH (20:31)
[2023-09-17] MEDS: busPIRone HCL 5 MG TABLET PO SCH (20:32)
[2023-09-17] MEDS: ATORVASTATIN 20 MG TABLET PO SCH (20:32)
[2023-09-17] MEDS: DOCUSATE SODIUM 100 MG CAPSULE PO SCH (20:32)
[2023-09-17] MEDS: NORMAL SALINE 5 ML DISP.SYRIN IVF SCH (20:32)
[2023-09-18 00:25] LABS: BARBITURATE, URINE NEGATIVE (NEG <=200); BENZODIAZEPINE, URINE NEGATIVE (NEG <=150); CANNABINOID, URINE NEGATIVE (NEG <=50); COCAINE, URINE NEGATIVE (NEG <=150); METHAMPHETAMINES SCREEN,URINE NEGATIVE (NEG <=500); OPIATE, URINE NEGATIVE (NEG <=100); PHENCYCLIDINE SCREEN,URINE NEGATIVE (NEG <=25); UR TRICYCLIC ANTIDEPRESSANTS NEGATIVE (NEG <=300); URINE AMPHETAMINE NEGATIVE (NEG <=500); URINE METHADONE NEGATIVE (NEG <=200); URINE OXYCODONE SCREEN NEGATIVE (NEG <=100); URINE PROPOXYPHENE SCREEN NEGATIVE (NEG <=300)
[2023-09-18 01:41] VITALS: BP_SYST 136; PULSE 56; RESP 17; TEMP 97.8; O2SAT 94
[2023-09-18 05:14] LABS: BASOPHILS % (AUTO) 0.4 % (0.0-2.0); EOSINOPHILS # (AUTO) 0.1 K/uL (0.0-0.4); EOSINOPHILS % (AUTO) 1.8 % (0.0-4.0); HEMATOCRIT 39.9 % (36-48); HEMOGLOBIN 13.1 g/dL (12.0-16.0); LYMPHOCYTES % (AUTO) 18.2 % (20.5-51.5); MEAN CORPUSCULAR HEMOGLOBIN 29 pg (27-31); MEAN CORPUSCULAR HGB CONC 33 % (32-36); MEAN CORPUSCULAR VOLUME 89 fL (79.0-98.0); MONOCYTES # (AUTO) 0.4 K/uL (0.0-1.0); MONOCYTES % (AUTO) 7.7 % (1.7-9.3); NEUTROPHILS # (AUTO) 3.9 K/uL (1.8-7.7); NEUTROPHILS % (AUTO) 71.9 % (40.0-70.0); PLATELET COUNT (AUTO) 210 K/uL (130-430); RED CELL DISTRIBUTION WIDTH 13.2 % (9.0-15.0); WHITE BLOOD COUNT (AUTO) 5.4 K/uL (4.8-10.8)
[2023-09-18] MEDS: NORMAL SALINE 5 ML DISP.SYRIN IVF SCH ×3 (05:21→20:01)
[2023-09-18 05:30] LABS: CALCIUM 9.3 mg/dL (8.4-11.0); CREATININE 0.94 mg/dL (0.55-1.30); POTASSIUM 3.5 mmol/L (3.5-5.1)
[2023-09-18] MEDS: LEVOTHYROXINE SODIUM 0.125 MG TABLET PO SCH (07:40)
[2023-09-18 08:00] VITALS: BP_SYST 150; PULSE 69; RESP 16; TEMP 98.2; O2SAT 97
[2023-09-18] MEDS: DOCUSATE SODIUM 100 MG CAPSULE PO SCH ×2 (08:41→20:01)
[2023-09-18] MEDS: METOPROLOL TARTRATE 50 MG TABLET PO SCH ×2 (08:41→20:01)
[2023-09-18] MEDS: SODIUM CHLORIDE 500 MG TABLET PO SCH ×2 (08:42→20:01)
[2023-09-18] MEDS: CHOLECALCIFEROL (VITAMIN D-3) 400 UNIT TABLET PO SCH (08:42)
[2023-09-18] MEDS: TAMSULOSIN HCL 0.4 MG CAP PO SCH (08:42)
[2023-09-18] MEDS: Effexor 37.5 MG TAB PO SCH ×2 (08:42→20:01)
[2023-09-18] MEDS: PANTOPRAZOLE SODIUM 40 MG TAB PO SCH ×2 (08:42→20:01)
[2023-09-18] MEDS: ASPIRIN 81 MG TABLET(ECOTRIN) PO SCH (08:42)
[2023-09-18] MEDS: busPIRone HCL 5 MG TABLET PO SCH ×2 (08:42→20:00)
[2023-09-18] MEDS: LORazepam 2 MG/ML VIAL IVP PRN ×3 (10:53→20:38)
[2023-09-18] MEDS ORDERED: QUEtiapine FUMARATE 25 MG TABLET PO ONE (11:00)
[2023-09-18 12:28] VITALS: BP_SYST 142; PULSE 62; RESP 17; TEMP 98; O2SAT 97
[2023-09-18 16:19] VITALS: BP_SYST 148; PULSE 63; RESP 16; TEMP 98.1; O2SAT 98
[2023-09-18 19:30] VITALS: BP_SYST 175; PULSE 108; RESP 18; TEMP 98.9; O2SAT 96
[2023-09-18] MEDS: QUEtiapine FUMARATE 25 MG TABLET PO SCH (20:01)
[2023-09-18] MEDS: ATORVASTATIN 20 MG TABLET PO SCH (20:01)
[2023-09-19 00:23] VITALS: BP_SYST 137; PULSE 58; RESP 17; TEMP 97.8; O2SAT 95
[2023-09-19] MEDS: LORazepam 2 MG/ML VIAL IVP PRN (04:15)
[2023-09-19 05:25] LABS: BASOPHILS % (AUTO) 0.5 % (0.0-2.0); EOSINOPHILS # (AUTO) 0.2 K/uL (0.0-0.4); EOSINOPHILS % (AUTO) 3.2 % (0.0-4.0); HEMATOCRIT 41.2 % (36-48); HEMOGLOBIN 13.5 g/dL (12.0-16.0); LYMPHOCYTES # (AUTO) 1.3 K/uL (1.0-5.5); LYMPHOCYTES % (AUTO) 25.7 % (20.5-51.5); MEAN CORPUSCULAR HEMOGLOBIN 29 pg (27-31); MEAN CORPUSCULAR HGB CONC 33 % (32-36); MEAN CORPUSCULAR VOLUME 89 fL (79.0-98.0); MONOCYTES # (AUTO) 0.6 K/uL (0.0-1.0); MONOCYTES % (AUTO) 10.8 % (1.7-9.3); NEUTROPHILS # (AUTO) 3.1 K/uL (1.8-7.7); NEUTROPHILS % (AUTO) 59.8 % (40.0-70.0); PLATELET COUNT (AUTO) 217 K/uL (130-430); RED BLOOD CELL COUNT(AUTO) 4.63 MIL/uL (4.2-6.2); RED CELL DISTRIBUTION WIDTH 13.3 % (9.0-15.0); WHITE BLOOD COUNT (AUTO) 5.1 K/uL (4.8-10.8)
[2023-09-19 05:43] LABS: ALBUMIN 3.4 g/dL (3.4-4.8); CALCIUM 9.6 mg/dL (8.4-11.0); CREATININE 1.16 mg/dL (0.55-1.30); POTASSIUM 3.9 mmol/L (3.5-5.1); TOTAL BILIRUBIN 0.6 mg/dL (0.0-1.0); TOTAL PROTEIN, SERUM 6.9 g/dL (6.4-8.3)
[2023-09-19] MEDS: NORMAL SALINE 5 ML DISP.SYRIN IVF SCH ×2 (06:05→13:55)
[2023-09-19] MEDS: LEVOTHYROXINE SODIUM 0.125 MG TABLET PO SCH (06:05)
[2023-09-19 08:08] VITALS: BP_SYST 180; PULSE 76; RESP 16; TEMP 97.6; O2SAT 95
[2023-09-19] MEDS: TAMSULOSIN HCL 0.4 MG CAP PO SCH (08:29)
[2023-09-19] MEDS: QUEtiapine FUMARATE 25 MG TABLET PO SCH (08:29)
[2023-09-19] MEDS: ASPIRIN 81 MG TABLET(ECOTRIN) PO SCH (08:29)
[2023-09-19] MEDS: PANTOPRAZOLE SODIUM 40 MG TAB PO SCH (08:29)
[2023-09-19] MEDS: SODIUM CHLORIDE 500 MG TABLET PO SCH (08:29)
[2023-09-19] MEDS: busPIRone HCL 5 MG TABLET PO SCH (08:31)
[2023-09-19] MEDS: CHOLECALCIFEROL (VITAMIN D-3) 400 UNIT TABLET PO SCH (08:31)
[2023-09-19] MEDS: Effexor 37.5 MG TAB PO SCH (08:32)
[2023-09-19] MEDS: METOPROLOL TARTRATE 50 MG TABLET PO SCH (08:33)
[2023-09-19] MEDS: DOCUSATE SODIUM 100 MG CAPSULE PO SCH (09:00)
[2023-09-19 09:48] VITALS: BP_SYST 136
[2023-09-19 09:55] VITALS: O2SAT 95
[2023-09-19] MEDS ORDERED: METO-442 PO (10:11)
[2023-09-19] MEDS ORDERED: TAMS0.4C96 PO (10:11)
[2023-09-19] MEDS ORDERED: LEVO125T PO (10:11)
[2023-09-19] MEDS ORDERED: EFF37 PO (10:11)
[2023-09-19] MEDS ORDERED: BUSP5TAB3 PO (10:11)
[2023-09-19] MEDS ORDERED: VITD400 PO (10:11)
[2023-09-19] MEDS ORDERED: SER25 PO (10:11)
[2023-09-19] MEDS ORDERED: LIP20 PO (10:11)
[2023-09-19] MEDS ORDERED: PRO40 PO (10:11)
[2023-09-19] MEDS ORDERED: DOCU-144 PO (10:11)
[2023-09-19] MEDS ORDERED: SODI1TAB24 PO (10:11)
[2023-09-19 12:00] VITALS: BP_SYST 144; PULSE 65; RESP 16; TEMP 97; O2SAT 97
[2023-09-19 13:35] VITALS: BP_SYST 144; PULSE 65; RESP 16; TEMP 97; O2SAT 97
== END 2023-09-19 15:30 | disposition home health service (06) | DRG 101 ==
LOC: SED 22:17 → STU 09-17 04:32 → SMU 09-18 14:13
PROVIDERS: ADMIT Preventive Medicine Preventive Medicine/Occupational Environmental Medicine; ATTEND Preventive Medicine Preventive Medicine/Occupational Environmental Medicine
DX: G40.909 Epilepsy, unspecified, not intractable, without status epilepticus (principal); E87.1 Hypo-osmolality and hyponatremia; E87.20 Acidosis, unspecified; F41.9 Anxiety disorder, unspecified; I25.10 Atherosclerotic heart disease of native coronary artery without angina pectoris; I10 Essential (primary) hypertension; E03.9 Hypothyroidism, unspecified; R73.9 Hyperglycemia, unspecified; F14.129 Cocaine abuse with intoxication, unspecified
CPT/HCPCS: 36415; 70450-TC; 71045; 76376; 80048; 80053; 80307; 81000; 81001; 81015; 82962; 83605; 85025; 87040; 93005; 95816; 96365; 97116-GP; 97530-GP; 99291; G0378; G0482; J1953; J2060